=== PATIENT | female | born 1940 | race Caucasian/White ===

== ENCOUNTER → 2017-03-31 | Outpatient (CLI) | payer MEDICARE ==
--- NOTE | 2017-03-31 16:26 | RAD ---
EXAM: Chest 2 views. HISTORY: Lung nodule. COMPARISON: 02/06/2015, 01/28/2015. FINDINGS: Frontal and lateral views of the chest are obtained. There are changes of right pneumonectomy. The right hemithorax is opacified. The hepatic flexure of the colon projects in the right chest secondary to elevation of the right hemidiaphragm. This is stable. No clearly suspicious nodule is appreciated on the left. A small density in the left base likely corresponds with scarring on prior CT. Hyperinflation suggests chronic obstructive pulmonary disease. There is no pneumothorax. The heart is not enlarged. IMPRESSION: 1. Status post right pneumonectomy. 2. No clearly suspicious nodule on the left. Correlate for the site of concern.
== END | disposition home or self-care (01) ==
LOC: RAD 15:07
PROVIDERS: ATTEND Internal Medicine Pulmonary Disease
DX: R91.1 Solitary pulmonary nodule (principal); Z90.2 Acquired absence of lung [part of]
CPT/HCPCS: 71020

== ENCOUNTER → 2018-03-15 | Outpatient (CLI) | payer MEDICARE ==
[~2018-03-15] MED LIST: ONDA4TAB7 PO
--- NOTE | 2018-03-15 18:07 | RAD ---
Chest, 2 views, 03/15/2018: HISTORY: Cough, shortness of breath There has been a previous right pneumonectomy. There is associated elevation right hemidiaphragm. Bowel loops extend up beneath the right hemidiaphragm. There is mild linear scarring or atelectasis in the left base. The left lung is otherwise clear. No left-sided pleural fluid is evident. The heart size is unchanged. The pulmonary vascularity is normal. Moderate scattered degenerative changes are present in the spine. IMPRESSION: 1. Status post right pneumonectomy. 2. Mild left basilar linear scarring or atelectasis. Electronically signed by: Garry Garcia MD (03/15/2018 6:04 PM) [facility]
== END | disposition home or self-care (01) ==
LOC: RAD 12:26
PROVIDERS: ATTEND Internal Medicine Pulmonary Disease
DX: R05 Cough (principal); J98.6 Disorders of diaphragm; Z98.890 Other specified postprocedural states
CPT/HCPCS: 71046

== ENCOUNTER → 2018-03-22 | Outpatient (CLI) | payer MEDICARE ==
--- NOTE | 2018-03-22 16:34 | RAD ---
CT sinus without contrast History: Cough, sinus congestion for 8 weeks. History of lung cancer and breast cancer. Technique: CT of the sinuses was performed without intravenous contrast. Axial, sagittal, and coronal reconstructions were obtained. Exposure: One or more of the following individualized dose reduction techniques were utilized for this examination: 1. Automated exposure control 2. Adjustment of the mA and/or kV according to patient size 3. Use of iterative reconstruction technique Findings: Both osteomeatal units are patent. Minimal right inferior maxillary sinus mucosal thickening is seen. The other paranasal sinuses are clear with no significant mucosal thickening. No polyps or masses are seen. No significant mucoperiosteal reaction is identified. IMPRESSION: 1. Minimal right maxillary sinus disease Electronically signed by: Yaron Bush MD (03/22/2018 4:31 PM) [place] [id number]
--- NOTE | 2018-03-22 17:45 | RAD ---
CT CHEST WO CONTRAST Indication: Cough, sinus congestion for 8 weeks, history of lung cancer breast cancer Technique: Noncontrast CT imaging was performed of the chest, multiplanar reconstruction images submitted. One or more of the following individualized dose reduction techniques were utilized for this examination: 1. Automated exposure control 2. Adjustment of the mA and/or kV according to patient size 3. Use of iterative reconstruction technique. Comparison: February 06, 2015 Findings: There again has been right pneumonectomy. Fluid again fills residual small right hemithorax as seen previously, internal density measurements of 24 Hounsfield units. There is no left pleural effusion or pneumothorax. There are some new small foci of slightly nodular density of the left upper lobe, largest individual nodule about 7 mm, best seen on axial images 38-43, adjacent to likely atelectasis or fibrotic change. There are some foci of faint groundglass density of the left lower lobe although previously some foci of atelectasis present. There is coronary calcification. Thoracic aortic caliber is similar. No new significantly enlarged nodes are identified of the chest. There is again heterogeneity in the lumen of the gallbladder likely due to cholelithiasis. There is multilevel thoracolumbar spondylosis and degenerative disc disease. There is lumbar levoscoliosis. IMPRESSION: 1. There again has been right pneumonectomy, again fluid filling the residual small right hemithorax. There are some new small foci of nodular density of the left upper lobe with the largest individual nodule about 0.7 cm 3-[address] follow-up is recommended as per revised Fleischner guidelines. 2. There is again cholelithiasis. Electronically signed by: Sunday Bashir MD (03/22/2018 5:42 PM) [email or web address]
== END | disposition home or self-care (01) ==
LOC: CT 12:33
PROVIDERS: ATTEND Internal Medicine Pulmonary Disease
DX: M51.35 Other intervertebral disc degeneration, thoracolumbar region (principal); M47.895 Other spondylosis, thoracolumbar region; K80.20 Calculus of gallbladder without cholecystitis without obstruction; R91.1 Solitary pulmonary nodule; J01.00 Acute maxillary sinusitis, unspecified; Z85.118 Personal history of other malignant neoplasm of bronchus and lung
CPT/HCPCS: 70486; 71250

== ENCOUNTER 2018-04-02 14:02 | Emergency (ER) | payer MEDICARE ==
[~2018-04-02] VITALS: Ht 170.2 cm; Wt 72.6 kg
[2018-04-02] MEDS ORDERED: IV NORMAL SALINE 1000ML BAG 1,000 ML IV ONE ×2 (14:45→15:45)
[2018-04-02] MEDS ORDERED: ONDANSETRON PF 4 MG/2 ML VIAL. IV ONE ×2 (14:45→17:00)
[2018-04-02 15:01] LABS: BILIRUBIN,URINE NEGATIVE (NEG); CLARITY,URINE CLEAR; COLOR,URINE YELLOW; NITRITE,URINE NEGATIVE (NEG); PROTEIN,URINE NEGATIVE (NEG-TRACE); UROBILINOGEN,URINE 0.2 mg/dL (0.2 mg/dL)
[2018-04-02 15:14] LABS: BACTERIA,URINE 0 /HPF (0-FEW); RBC,URINE OCC /HPF (0-2); SQUAMOUS EPITHELIAL CELL,UR OCC /LPF; WBC,URINE OCC /HPF (0-4)
[2018-04-02 15:14] LABS: BASO % 1 % (0-3); EOS % 1 % (0-3); HEMATOCRIT 38.7 % (36.0-47.0); HEMOGLOBIN 13.6 g/dL (12.0-15.5); LYMPH # 0.5 x10^3/uL (1.0-4.8); LYMPH % 9 % (24-48); MEAN CORPUSCULAR HEMOGLOBIN 32 pg (25-35); MEAN CORPUSCULAR HGB CONC 35 g/dL (31-37); MEAN CORPUSCULAR VOLUME 91 fL (79-100); MONO # 0.5 x10^3/uL (0.0-1.1); MONO % 9 % (0-9); NEUT # 4.3 x10^3uL (1.8-7.7); NEUT % 81 % (31-73); PLATELET COUNT 285 x10^3/uL (140-400); RED BLOOD COUNT 4.25 x10^6/uL (3.50-5.40); RED CELL DISTRIBUTION WIDTH 12.3 % (11.5-14.5); WHITE BLOOD COUNT 5.4 x10^3/uL (4.0-11.0)
[2018-04-02 15:25] LABS: CALCIUM 9.6 mg/dL (8.5-10.1); GFR 53.6; POTASSIUM 4.4 mmol/L (3.5-5.1)
[2018-04-02 15:31] LABS: ALBUMIN 3.6 g/dL (3.4-5.0); ALBUMIN/GLOBULIN RATIO 0.9 (1.0-1.7); TOTAL BILIRUBIN 0.4 mg/dL (0.2-1.0); TOTAL PROTEIN 7.4 g/dL (6.4-8.2)
--- NOTE | 2018-04-02 15:31 | PHYS DOC ---
Past Medical History Past Medical History: Cancer, COPD Additional Past Medical Histor: lung and breast cancer Past Surgical History: Other Additional Past Surgical Histo: R lung removed,bilat mastectomy Alcohol Use: None Drug Use: None Adult General Chief Complaint Chief Complaint: NAUSEA/VOMITING/DIARRHA HPI HPI Patient is a 77 year old female who presents to the ER for evaluation of nausea /vomiting/diarrhea since yesterday morning. Patient denies any abdominal pain. No fever, no travel history. S/p R lung resection 2/2 lung cancer. has had chronic cough for the past 6 weeks. Has completed a course of Levaquin prescribed by [employer]asing [employer] and is currently on bactrim also prescribed by [employer]asing [employer]. Review of Systems Review of Systems Constitutional: Denies fever or chills [] Eyes: Denies change in visual acuity, redness, or eye pain [] HENT: Denies nasal congestion or sore throat [] Respiratory: Cough present Cardiovascular: No chest Pain, no LE edema, No Orthopnea GI: Denies abdominal pain, Denies GI bleed symptoms, Nausea present, diarrhea present, vomiting present : Denies dysuria or hematuria [] Musculoskeletal: Denies back pain or joint pain [] Integument: Denies rash or skin lesions [] Neurologic: Denies headache, focal weakness or sensory changes [] Endocrine: Denies polyuria or polydipsia [] All other systems were reviewed and found to be within normal limits, except as documented in this note. Current Medications Current Medications Current Medications Medications (Trade) Dose Ordered Sig/Nitza Start Time Stop Time Status Last Admin Dose Admin Ondansetron HCl (Zofran) 8 mg 1X ONCE 04/02/18 14:45 04/02/18 14:46 DC 04/02/18 15:01 8 MG Sodium Chloride 1,000 ml @ 1,000 mls/hr 1X ONCE 04/02/18 15:45 04/02/18 16:44 Allergies Allergies Allergies Coded Allergies Type Severity Reaction Last Updated Verified Penicillins Allergy Intermediate "lip swelling" 04/02/18 Yes Physical Exam Physical Exam Constitutional: Well developed, well nourished, active vomiting HENT: Normocephalic, atraumatic, Eyes: PERRLA, EOMI, Neck: no stridor. [] Cardiovascular:Tachycardic, no murmur [] Lungs & Thorax: Left sided breath sounds clear. No R sided breath sounds Abdomen: Bowel sounds normal, soft, no tenderness, no masses, no pulsatile masses. [] Skin: Warm, dry, no erythema, no rash. [] Back: No tenderness, no CVA tenderness. [] Extremities: no edema. [] Neurologic: Alert and oriented X 3, no focal deficits noted. [] Current Patient Data Vital Signs Vital Signs Date Time Temp Pulse Resp B/P (MAP) Pulse Ox O2 Delivery O2 Flow Rate FiO2 04/02/18 14:10 98.2 108 28 146/89 (108) 96 Room Air 98.2 Lab Values Laboratory Tests Test 04/02/18 14:20 04/02/18 15:00 Urine Collection Type Unknown Urine Color Yellow Urine Clarity Clear Urine pH 7.0 Urine Specific [place] 1.020 Urine Protein Negative mg/dL (NEG-TRACE) Urine Glucose (UA) Negative mg/dL (NEG) Urine Ketones (Stick) Trace mg/dL (NEG) Urine Blood Negative (NEG) Urine Nitrite Negative (NEG) Urine Bilirubin Negative (NEG) Urine Urobilinogen Dipstick 0.2 mg/dL (0.2 mg/dL) Urine Leukocyte Esterase Negative (NEG) Urine RBC Occ /HPF (0-2) Urine WBC Occ /HPF (0-4) Urine Squamous Epithelial Cells Occ /LPF Urine Bacteria 0 /HPF (0-FEW) Urine Mucus Mod /LPF White Blood Count 5.4 x10^3/uL (4.0-11.0) Red Blood Count 4.25 x10^6/uL (3.50-5.40) Hemoglobin 13.6 g/dL (12.0-15.5) Hematocrit 38.7 % (36.0-47.0) Mean Corpuscular Volume 91 fL (79-100) Mean Corpuscular Hemoglobin 32 pg (25-35) Mean Corpuscular Hemoglobin Concent 35 g/dL (31-37) Red Cell Distribution Width 12.3 % (11.5-14.5) Platelet Count 285 x10^3/uL (140-400) Neutrophils (%) (Auto) 81 % (31-73) H Lymphocytes (%) (Auto) 9 % (24-48) L Monocytes (%) (Auto) 9 % (0-9) Eosinophils (%) (Auto) 1 % (0-3) Basophils (%) (Auto) 1 % (0-3) Neutrophils # (Auto) 4.3 x10^3uL (1.8-7.7) Lymphocytes # (Auto) 0.5 x10^3/uL (1.0-4.8) L Monocytes # (Auto) 0.5 x10^3/uL (0.0-1.1) Eosinophils # (Auto) 0.0 x10^3/uL (0.0-0.7) Basophils # (Auto) 0.0 x10^3/uL (0.0-0.2) Sodium Level 128 mmol/L (136-145) L Potassium Level 4.4 mmol/L (3.5-5.1) Chloride Level 92 mmol/L (98-107) L Carbon Dioxide Level 28 mmol/L (21-32) Anion Gap 8 (6-14) Blood Urea Nitrogen 10 mg/dL (7-20) Creatinine 1.0 mg/dL (0.6-1.0) Estimated GFR (Cockcroft-Gault) 53.6 BUN/Creatinine Ratio 10 (6-20) Glucose Level 106 mg/dL (70-99) H Calcium Level 9.6 mg/dL (8.5-10.1) Total Bilirubin 0.4 mg/dL (0.2-1.0) Aspartate Amino Transferase (AST) 20 U/L (15-37) Alanine Aminotransferase (ALT) 18 U/L (14-59) Alkaline Phosphatase 54 U/L (46-116) Total Protein 7.4 g/dL (6.4-8.2) Albumin 3.6 g/dL (3.4-5.0) Albumin/Globulin Ratio 0.9 (1.0-1.7) L Lipase 97 U/L (73-393) Laboratory Tests 04/02/18 15:00 Laboratory Tests 04/02/18 15:00 EKG EKG [] Radiology/Procedures Radiology/Procedures [] Course & Med Decision Making Course & Med Decision Making Pertinent Labs and Imaging studies reviewed. (See chart for details) []1601: Feeling better. Heart rate improved but still and 90s. We'll give 1 more liter fluid. Continues to have a benign abdomen. Has multiple questions regarding her chronic cough but this is being managed by her offline editor with whom she has an appointment with tomorrow. Patient has a sodium of 128 but she is asymptomatic from this and this is unrelated to her ER presentation. This likely represents a chronic hyponatremia and per current evidence-based medicine is not indicated for any acute treatment. She has normal renal function. Will discharge patient with a small course of Zofran. ER return precautions given. Patient verbalized understanding. All questions answered. Dragon Disclaimer Dragon Disclaimer This electronic medical record was generated, in whole or in part, using a voice recognition dictation system. Departure Departure Impression: Primary Impression: Vomiting Additional Impression: Dehydration Disposition: HOME, SELF-CARE Condition: IMPROVED Referrals: PEYTON CABA MD (PCP) Patient Instructions: Nausea and Vomiting, Viral Gastroenteritis Additional Instructions: Thank you for coming to [facility]. Please repeat the attached handouts. Please follow-up with your primary care physician. Return to the ER if your symptoms worsen or you have any other concerns. Please take the prescribed nausea medication only as needed. Please encourage fluids. Avoid dairy-containing products until your diarrhea is resolved. Scripts Ondansetron Hcl (ZOFRAN) 4 Mg Tablet 4 MG PO PRN TID PRN for NAUSEA MDD 3, #15 nausea/vomiting Prov: JOSE CHRISTIAN DO 04/02/18 Problem Qualifiers JOSE CHRISTIAN DO Apr 02, 2018 15:31
[2018-04-02] MEDS ORDERED: ONDA4TAB7 PO (16:06)
[2018-04-02 16:58] VITALS: BP 150/75
--- NOTE | 2018-04-03 06:27 | EKG ---
[facility] [address] [place] [address] Test Date: 2018-04-02 Test Time: 14:44:53 Pat Name: ROSELIA GOLDBERG Department: Room: Gender: F Physics Technician: : 1940 Requested By: JOSE CHRISTIAN Order Number: [id number] Reading MD: Pascual Mas MD Measurements Intervals [place] Rate: 100 P: -128 PA: 122 QRS: -69 QRSD: 82 T: 51 QT: 366 QTc: 475 Interpretive Statements SINUS RHYTHM NON-SPECIFIC ST/T CHANGES PROLONGED QT Electronically Signed On 04-03-2018 10:59:07 GYN by Pascual Mas MD
== END 2018-04-02 17:26 | disposition home or self-care (01) ==
LOC: ER 14:02
DX: E86.0 Dehydration (principal); R05 Cough; J44.9 Chronic obstructive pulmonary disease, unspecified; Z85.3 Personal history of malignant neoplasm of breast; Z85.118 Personal history of other malignant neoplasm of bronchus and lung; Z88.0 Allergy status to penicillin
CPT/HCPCS: 36415; 80053; 81001; 83690; 85025; 93005; 96361; 96374; 96376; 99285; J2405; J7030

== ENCOUNTER → 2018-06-07 | Day surgery (SDC) | payer MEDICARE ==
[~2018-06-07] MED LIST changes: +ALBUTEROL SULFATE 2.5 MG/3 ML NEBU. NEB PRN; +ASPI-630 PO; +CALC200T3 PO; +EPINEPHrine 1 MG/ML VIAL INJ PRN; +EPINEPHrine 1 MG/ML VIAL ONE; +FEMARA2.5 MG PO; +FLUT12AE IH; +IV RINGERS,LACTATED 1000ML 1,000 ML IV SCH; +LIDOCAINE 1% Multi-Dose 20 ML VIAL. INJ PRN; +LIDOCAINE 1% Multi-Dose 20 ML VIAL. ONE; +LIDOCAINE 2% PF 5 ML VIAL. ONE; +LIDOCAINE 2% VISCOUS 100 ML BOTTLE. MM PRN; +LIDOCAINE 2% VISCOUS 100 ML BOTTLE. ONE; +LIDOCAINE 4% TOPICAL 50 ML SOLUTION. MM PRN; +LIDOCAINE 4% TOPICAL 50 ML SOLUTION. ONE; +MONT10TA49 PO; +MULT1TAB52 PO; +OMEP10CA4 PO; +PROPOFOL 20 ML IV ONE; +VENTOLIN HFA18 GM INH
[2018-06-07 14:02] VITALS: BP 123/73
--- NOTE | 2018-06-07 14:21 | PDOC ---
PULMONARY PROGRESS NOTES Vitals Vital Signs Date Time Temp Pulse Resp B/P (MAP) Pulse Ox O2 Delivery O2 Flow Rate FiO2 06/07/18 13:54 97.0 56 16 110/66 98 Room Air 97.0 06/07/18 13:48 5 Medications Active Scripts Medications Dose Route/Sig Max Daily Dose Days Date Category Omeprazole 10 Mg Capsule.dr 10 Mg PO DAILY 06/07/18 Reported Aspirin 81 Mg Tab.chew 81 Mg PO DAILY05 06/07/18 Reported Multivitamins (Multivitamin) 1 Each Tablet 1 Tab PO DAILY 06/07/18 Reported Tums (Calcium Carbonate) 200 Mg Tab.chew 200 Mg PO Q4-6HRS PRN 06/07/18 Reported Femara (Letrozole) 2.5 Mg Tablet 1 Tab PO DAILY 06/07/18 Reported Singulair Tablet (Montelukast Sodium) 10 Mg Tablet 1 Tab PO DAILY 06/07/18 Reported Flovent 110MCG Hfa (Fluticasone Propionate) 12 Gm Aer.w.adap 2 Puff IH BID 06/07/18 Reported Ventolin Hfa Inhaler (Albuterol Sulfate) 18 Gm Hfa.aer.ad 2 Puff INH BID 06/07/18 Reported Impression . DICTATED PHUC SALAZAR MD Jun 07, 2018 14:21
--- NOTE | 2018-06-07 14:26 | OP ---
DATE OF SURGERY: 06/07/2018 ATTENDING PHYSICIAN: Phuc Salazar MD PROCEDURE: Bronchoscopy, bronchoalveolar lavage. INDICATIONS: The patient with prior history of right pneumonectomy for carcinoid tumor. For persistent cough, undergoing a diagnostic bronchoscopy. Risks, benefits, and alternatives reviewed with the patient, she consented. SEDATION: Please see anesthesia's notes. DESCRIPTION OF PROCEDURE: Timeout was performed prior to sedation. Vital signs and O2 saturations were maintained within normal limits throughout the procedure. The bronchoscope was passed through the right naris. The vocal cords were identified moving bilaterally without any dysfunction. The piriform sinuses were clear of any masses. Bronchoscope was then passed through the vocal cords into the proximal trachea, which was normal. The distal trachea was likewise normal. On the right, there was a stump-like picture. A picture was obtained. There was no evidence of recurrent disease. Left side segments and subsegments were all visualized. There were no endobronchial lesions. There were some thick white secretions. Lavage was performed in the right lower lobe. IMPRESSION: 1. Normal vocal cords. 2. No endobronchial lesion. 3. Normal stump, status post right pneumonectomy. 4. No endobronchial lesion on the left. PLAN: We will await the BAL results, the patient to follow up in the office. PHUC SALAZAR MD DR: ALLAN/nts JOB#: [id number] / [id number]
--- NOTE | 2018-06-08 16:10 | PATHOLOGY ---
Note [facility] Accession Number: [id number] TESTS RESULT FLAG UNITS REF RANGE LAB Clinician Provided Cytology Information No. of containers..01 Other (Miscellaneous) Source: LT LUNG BAL DIAGNOSIS: LT LUNG BAL NEGATIVE FOR MALIGNANT CELLS. NORMAL BRONCHIAL CELLS AND MACROPHAGES ARE PRESENT. PULMONARY MACROPHAGES (DUST CELLS) ARE PRESENT. RED BLOOD CELLS ARE PRESENT. Signed out by: Phillip Nicole MD, Pathologist NPI- [id number] Performed by: Akira Bedoya, School Age Program Teacher ([facility]) Gross description: 01 7ML, RED, CLOUDY /LCS FLAG LEGEND: L-Low Normal,H-High Normal,LL-Alert Low,HH-Alert High <-Panic Low,>-Panic High,A-Abnormal,AA-Critical Abnormal Performed at: [address] [address] Isaak Escalante MD, [facility] [address] [place] [address] Kailash Lott MD, Specimen Comment: A courtesy copy of this report has been sent to Specimen Comment: [phone]. Specimen Comment: Report sent to Specimen Comment: A duplicate report has been generated due to demographic updates. Performed at: [address], [place] [id number] MD Isaak Escalante MD Phone: [phone]
== END | disposition home or self-care (01) ==
LOC: SURG 12:09
PROVIDERS: ATTEND Internal Medicine Pulmonary Disease
DX: R91.8 Other nonspecific abnormal finding of lung field (principal); Z88.0 Allergy status to penicillin; Z88.1 Allergy status to other antibiotic agents; Z88.8 Allergy status to other drugs, medicaments and biological substances
CPT/HCPCS: 31624; 87070; 87205; 94640; J2001; J2704; J7613; 31622; 87186; 88112; J0171

== ENCOUNTER 2018-06-15 10:46 | Inpatient (IN) | payer MEDICARE ==
[~2018-06-15] VITALS: Ht 170.2 cm; Wt 69.2 kg
[~2018-06-15 10:46] MED LIST changes: -ALBUTEROL SULFATE 2.5 MG/3 ML NEBU. NEB PRN; -EPINEPHrine 1 MG/ML VIAL INJ PRN; -EPINEPHrine 1 MG/ML VIAL ONE; -IV RINGERS,LACTATED 1000ML 1,000 ML IV SCH; -LIDOCAINE 1% Multi-Dose 20 ML VIAL. INJ PRN; -LIDOCAINE 1% Multi-Dose 20 ML VIAL. ONE; -LIDOCAINE 2% PF 5 ML VIAL. ONE; -LIDOCAINE 2% VISCOUS 100 ML BOTTLE. MM PRN; -LIDOCAINE 2% VISCOUS 100 ML BOTTLE. ONE; -LIDOCAINE 4% TOPICAL 50 ML SOLUTION. MM PRN; -LIDOCAINE 4% TOPICAL 50 ML SOLUTION. ONE; -MONT10TA49 PO; +MONT10TA6 PO; +OMEP10CA3 PO; -OMEP10CA4 PO; -PROPOFOL 20 ML IV ONE
[2018-06-15] MEDS ORDERED: CALCIUM CARBONATE 500 MG TAB.CHEW PO PRN (14:15)
[2018-06-15] MEDS ORDERED: MAGNESIUM HYDROXIDE 2,400 MG/30 ML ORAL.SUSP. PO PRN (14:15)
[2018-06-15] MEDS ORDERED: ACETAMINOPHEN 325 MG TABLET. PO PRN (14:15)
[2018-06-15] MEDS ORDERED: ONDANSETRON PF 4 MG/2 ML VIAL. IV PRN (14:15)
[2018-06-15] MEDS ORDERED: HYDROcodone/APAP 5/325MG 1 TAB TABLET PO PRN (14:15)
--- NOTE | 2018-06-15 14:21 | PDOC1 ---
History and Physical Date of Admission Date of Admission DATE: 06/15/18 TIME: 14:17 Identification/Chief Complaint Chief Complaint Cough Source Source: Caregiver, Chart review, Patient History of Present Illness History of Present Illness Ms Bernal is a 78yo F w/ PMHx chronic asthma, s/p right pneumonectomy 2002 who is being directly admitted after a positive pseudomonas culture via bronchoscopy outpatient on 06/07/18. She has been having a persistent cough with yellow sputum for at least 3 months. She had an abnormal CT chest in February of last year where she had some faint nodular infiltrate that appeared dense in the left upper lobe and and has undergone multiple rounds of antibiotics with no significant improvement and after an episode of fever, nausea and vomiting on 05/09 she was scheduled for and underwent bronchoscopy performed by Dr. Saavedra 06/07/18 and cultures grew multidrug resistant Pseudomonas aeruginosa with multiple drug resistances shown. She is accompanied by her and currently notes she does still have brownish yellow sputum she coughs up daily. No CP, mild SOB. Some nausea, no further vomiting. Past Medical History Cardiovascular: No pertinent hx Pulmonary: Asthma, Bronchitis, Pneumonia GI: No pertinent hx Heme/Onc: No pertinent hx Hepatobiliary: No pertinent hx Psych: No pertinent hx Rheumatologic: No pertinent hx Infectious disease: No pertinent hx ENT: Allergic Rhinitis Renal/: No pertinent hx Endocrine: No pertinent hx Dermatology: No pertinent hx Past Surgical History Past Surgical History: Mastectomy (Bilateral 2013), Tubal Ligation, Other ( Right pneumonectomy 2002) Family History Family History: Asthma Social History Smoke: Quit ALCOHOL: rare Drugs: None Current Medications Current Medications Active Scripts Active Reported Omeprazole 10 Mg Capsule.dr 10 Mg PO DAILY Aspirin 81 Mg Tab.chew 81 Mg PO DAILY05 Multivitamins (Multivitamin) 1 Each Tablet 1 Tab PO DAILY Tums (Calcium Carbonate) 200 Mg Tab.chew 200 Mg PO Q4-6HRS PRN Femara (Letrozole) 2.5 Mg Tablet 1 Tab PO DAILY Singulair Tablet (Montelukast Sodium) 10 Mg Tablet 1 Tab PO DAILY Flovent 110MCG Hfa (Fluticasone Propionate) 12 Gm Aer.w.adap 2 Puff IH BID Ventolin Hfa Inhaler (Albuterol Sulfate) 18 Gm Hfa.aer.ad 2 Puff INH BID Allergies Allergies: Coded Allergies: Penicillins (Verified Allergy, Severe, "lip swelling", 06/07/18) levofloxacin (Verified Allergy, Intermediate, 06/07/18) muscle pain I S O L A T I O N *CONTACT* (Verified Allergy, Unknown, 06/11/18) (R) PSA ROS General: YES: Fatigue, Malaise PSYCHOLOGICAL ROS: No: Anxiety, Behavioral Disorder, Concentration difficultie , Decreased libido, Depression, Disorientation, Hallucinations, Hostility, Irritablity, Memory difficulties, Mood Swings, Obsessive thoughts, Physical abuse, Sexual abuse, Sleep disturbances, Suicidal ideation, Other Eyes: No Blurry vision, No Decreased vision, No Double vision, No Dry eyes, No Excessive tearing, No Eye Pain, No Itchy Eyes, No Loss of vision, No Photophobia , No Scotomata, No Uses contacts, No Uses glasses, No Other HEENT: YES: Nasal congestion, Nasal discharge; No: Heacaches, Visual Changes, Hearing change, Oral lesions, Sinus pain, Sore Throat, Epistaxis, Sneezing, Snoring, Tinnitus, Vertigo, Vocal changes, Other ALLERGY AND IMMUNOLOGY: No: Hives, Insect Bite Sensitivity, Itchy/Watery Eyes, Nasal Congestion, Post Nasal Drip, Seasonal Allergies, Other Hematological and Lymphatic: No: Bleeding Problems, Blood Clots, Blood Transfusions, Brusing, Night Sweats, Pallor, Swollen Lymph Nodes, Other ENDOCRINE: No: Breast Changes, Galactorrhea, Hair Pattern Changes, Hot Flashes , Malaise/lethargy, Mood Swings, Palpitations, Polydipsia/polyuria, Skin Changes , Temperature Intolerance, Unexpected Weight Changes, Other Breast: No New/Changing Breast Lumps, No Nipple changes, No Nipple discharge, No Other Respiratory: YES: Cough, Shortness of breath, Sputum Changes, Wheezing; No: Hemoptysis, Orthopnea, Pleuritic Pain, SOB with excertion, Stridor, Tachypnea, Other Cardiovascular: No Chest Pain, No Palpitations, No Orthopnea, No Paroxysmal Noc. Dyspnea, No Edema, No Lt Headedness, No Other Gastrointestinal: Yes Nausea; No Vomiting, No Abdominal Pain, No Diarrhea, No Constipation, No Melena, No Hematochezia, No Other Genitourinary: No Dysuria, No Frequency, No Incontinence, No Hematuria, No Retention, No Discharge, No Urgency, No Pain, No Flank Pain, No Other, No , No , No , No , No , No , No Musculoskeletal: No Gait Disturbance, No Joint Pain, No Joint Stiffness, No Joint Swelling, No Muscle Pain, No Muscular Weakness, No Pain In:, No Swelling In:, No Other Neurological: No Behavorial Changes, No Bowel/Bladder ControlChng, No Confusion , No Dizziness, No Gait Disturbance, No Headaches, No Impaired Coord/balance, No Memory Loss, No Numbness/Tingling, No Seizures, No Speech Problems, No Tremors, No Visual Changes, No Weakness, No Other Skin: No Dry Skin, No Eczema, No Hair Changes, No Lumps, No Mole Changes, No Mottling, No Nail Changes, No Pruritus, No Rash, No Skin Lesion Changes, No Other, No Acne Physical Exam General: Alert, Oriented X3, Cooperative, No acute distress HEENT: Atraumatic, PERRLA, EOMI, Mucous membr. moist/pink Lungs: Other (No audible breath sounds on right, prolonged expiratory phase on left) Heart: S1S2, RRR, no gallops, no murmurs Abdomen: Normal bowel sounds, Soft, No tenderness, No hepatosplenomegaly, No masses Rectal Exam: not examined Extremities: No clubbing, No cyanosis, No edema, Normal pulses, No tenderness/ swelling Skin: No rashes, No breakdown, No significant lesion Neuro: Normal gait, Normal speech, Strength at 5/5 X4 ext, Normal tone, Sensation intact, Cranial nerves 3-12 NL, Reflexes 2+ Psych/Mental Status: Mental status NL, Mood NL VTE Prophylaxis Ordered VTE Prophylaxis Devices: No VTE Pharmacological Prophylaxi: Yes Assessment/Plan Assessment/Plan A/P: Pseudomonas pneumonia - has levaquin and PCN allergies, resistant to these anyway. Will start on merrem. Consult ID and pulmonology. I think PICC nurse or IR for PICC is appropriate as well Amikacin S<=2 Cefepime S =2 Ceftazidime S =4 Ciprofloxacin R>=4 Gentamicin S<=1 Imipenem S =2 Levofloxacin I =4 Meropenem S =1 Piperacillin R>=128 Ticarcillin R>=128 Tobramycin I =8 S/p right pneumonectomy - stable Chronic asthmatic bronchitis - cont nebs, pulmicort Chronic sinusitis - steroid nasal spray Nausea - IV zofran FEN - general diet PPX - heparin FULL CODE Inpatient for IV treatment of MDRO pseudomonas pneumonia in high risk patient, will be in at least 2 midnights. LETICIA QUEZADA MD Jun 15, 2018 14:21
[2018-06-15 15:00] VITALS: BP 151/60
[2018-06-15] MEDS: HEPARIN for SUB-Q USE 5,000 UNIT/ML VIAL. SQ SCH ×2 (15:00→22:16)
--- NOTE | 2018-06-15 15:34 | CONS ---
DATE OF CONSULTATION: 06/15/2018 ATTENDING PHYSICIAN: Dr. Ward. REASON FOR CONSULTATION: Multidrug resistant Pseudomonas pneumonia. HISTORY OF PRESENT ILLNESS: The patient is a 78-year-old who sees my partner, Dr. Saavedra in the office. She has history of right pneumonectomy in 2002. The patient has been having a persistent cough with on and off yellow sputum production since last 2-3 months. She had an abnormal CT chest in February of last year where she had some faint nodular infiltrate in the left upper lobe. The patient underwent bronchoscopy performed by Dr. Saavedra in May and cultures grew multidrug resistant Pseudomonas. As a result, we called the patient for IV antibiotics. Pseudomonas was not sensitive to any oral antibiotics. The patient states she does not have a fever, but she has on and off some light yellow sputum production. No chest pains. No shortness of breath. No weight loss. No headache, no nausea or vomiting, no diarrhea, no dysuria, no focal weakness. PAST MEDICAL HISTORY: History of right pneumonectomy for lung cancer in 2002. Possible mild COPD. History of GERD. PAST SURGICAL HISTORY: Right pneumonectomy. ALLERGIES: PENICILLIN AND LEVAQUIN. REVIEW OF SYSTEMS: Twelve-point system obtained. Pertinent positives discussed in my history of present illness, otherwise noncontributory. All systems that were negative were reviewed as well. SOCIAL HISTORY: Has minimal tobacco history in the past. Quit many years ago. PHYSICAL EXAMINATION: VITAL SIGNS: Have not been recorded yet. NECK: Supple. LUNGS: Clear on the left and diminished on the right. CARDIOVASCULAR: Regular rate. ABDOMEN: Soft, nontender. EXTREMITIES: With no pitting edema. Labs have been ordered. IMPRESSION: 1. Persistent cough with abnormal CT chest with a tiny nodular infiltrate in the left upper lobe. Status post bronchoscopy growing multidrug resistant Pseudomonas in bronchoalveolar lavage. 2. History of a right pneumonectomy for lung cancer in 2002. 3. Possible mild chronic obstructive pulmonary disease. RECOMMENDATIONS: 1. Discussed with the patient and her and discussed with Dr. Ward. 2. We will initiate broad spectrum antibiotic, meropenem. 3. Consult Infectious Disease regarding the duration of antibiotics. 4. If she needs a longer duration, then we will consider a PICC line placement and finished the course of antibiotic as an outpatient by home health. 5. Continue home medications. 6. We will also do a CT chest without contrast to assess for any progression in the previously seen left upper lobe infiltrate. Discussed with Dr. Ward. YOVANA COE MD DR: CARLY/brigid JOB#: [id number] / [id number]
[2018-06-15] MEDS: MEROPENEM 500 MG in IV NORMAL SALINE 50ML 50 ML IV SCH ×2 (17:02→22:07)
--- NOTE | 2018-06-15 17:14 | RAD ---
CT of the chest without contrast, 06/15/2018: HISTORY: Left upper lobe pneumonia, previous right pneumonectomy Noncontrast scans were obtained as requested. There is volume loss on the right with fluid in the right chest cavity compatible with a history of a previous right pneumonectomy. Several minimal pleural calcifications are noted. There is associated marked elevation of the right hemidiaphragm. Nodular lingular opacities present on the 03/22/2018 study have largely resolved. There is minimal residual streaky increased density in the inferior lingula, likely representing scarring. A tiny 3 mm subpleural nodule in the lateral aspect of the left upper lobe seen on image 15 of series #2 is unchanged. No pulmonary consolidation or new abnormality is seen on the left. There is no evidence of left-sided pleural fluid. There is calcific plaquing of the thoracic aorta without evidence of aneurysm. Minimal coronary artery calcification is present. Surgical clips are present in the mediastinum. No mediastinal adenopathy is seen. A trace amount of pericardial fluid is noted. Gallstones are present in the gallbladder. There is no pericholecystic edema. Moderate multilevel degenerative changes are present in the spine. IMPRESSION: 1. Status post right pneumonectomy. 2. Mild lingular nodularity seen on 03/22/2018 has largely resolved and was probably inflammatory in nature. 3. Mild scattered parenchymal scarring on the left 4. Cholelithiasis. PQRS Compliance Statement: One or more of the following individualized dose reduction techniques were utilized for this examination: 1. Automated exposure control 2. Adjustment of the mA and/or kV according to patient size 3. Use of iterative reconstruction technique Electronically signed by: Garry Garcia MD (06/15/2018 5:09 PM) [facility]
[2018-06-15 19:45] VITALS: BP 107/51
[2018-06-15 19:45] LABS: BASO % 1 % (0-3); EOS # 0.1 x10^3/uL (0.0-0.7); EOS % 2 % (0-3); HEMATOCRIT 36.7 % (36.0-47.0); HEMOGLOBIN 12.4 g/dL (12.0-15.5); LYMPH # 0.7 x10^3/uL (1.0-4.8); LYMPH % 12 % (24-48); MEAN CORPUSCULAR HEMOGLOBIN 31 pg (25-35); MEAN CORPUSCULAR HGB CONC 34 g/dL (31-37); MEAN CORPUSCULAR VOLUME 91 fL (79-100); MONO # 0.5 x10^3/uL (0.0-1.1); MONO % 10 % (0-9); NEUT # 4.4 x10^3uL (1.8-7.7); NEUT % 76 % (31-73); PLATELET COUNT 263 x10^3/uL (140-400); RED BLOOD COUNT 4.03 x10^6/uL (3.50-5.40); RED CELL DISTRIBUTION WIDTH 12.6 % (11.5-14.5); WHITE BLOOD COUNT 5.7 x10^3/uL (4.0-11.0)
[2018-06-15 20:02] LABS: CREATININE 0.9 mg/dL (0.6-1.0); GFR 60.4; POTASSIUM 4.2 mmol/L (3.5-5.1)
[2018-06-15] MEDS: ALBUTEROL SULFATE 2.5 MG/3 ML NEBU. NEB SCH (20:05)
[2018-06-15] MEDS: BUDESONIDE 0.5 MG/2 ML NEBU. NEB SCH (20:05)
[2018-06-15] MEDS ORDERED: NON FORMULARY ITEM (Albuterol Sulfate (Ventolin Hfa Inhaler) 2 PUFF) INH SCH (21:00)
[2018-06-15] MEDS ORDERED: NON FORMULARY ITEM (Fluticasone Propionate (Flovent 110MCG Hfa) 2 PUFF) IH SCH (21:00)
[2018-06-15] MEDS: SENNOSIDES/DOCUSATE 8.6/50MG TABLET. PO SCH (22:08)
[2018-06-15] MEDS: MONTELUKAST SODIUM 10 MG TABLET. PO SCH (22:08)
[2018-06-15] MEDS ORDERED: LETROZOLE 2.5MG TAB PO SCH (23:00)
[2018-06-15] MEDS: PANTOPRAZOLE 40 MG TABLET.DR. PO SCH (23:06)
[2018-06-15 23:45] VITALS: BP 115/62
[2018-06-16 03:57] VITALS: BP 110/54
[2018-06-16] MEDS: ASPIRIN CHEWABLE 81 MG TABLET. PO SCH (05:00)
[2018-06-16 05:10] LABS: BASO % 1 % (0-3); EOS # 0.1 x10^3/uL (0.0-0.7); EOS % 2 % (0-3); HEMATOCRIT 33.4 % (36.0-47.0); HEMOGLOBIN 11.4 g/dL (12.0-15.5); LYMPH # 0.7 x10^3/uL (1.0-4.8); LYMPH % 15 % (24-48); MEAN CORPUSCULAR HEMOGLOBIN 31 pg (25-35); MEAN CORPUSCULAR HGB CONC 34 g/dL (31-37); MEAN CORPUSCULAR VOLUME 91 fL (79-100); MONO # 0.6 x10^3/uL (0.0-1.1); MONO % 12 % (0-9); NEUT # 3.6 x10^3uL (1.8-7.7); NEUT % 70 % (31-73); PLATELET COUNT 243 x10^3/uL (140-400); RED BLOOD COUNT 3.67 x10^6/uL (3.50-5.40); RED CELL DISTRIBUTION WIDTH 12.6 % (11.5-14.5); WHITE BLOOD COUNT 5.1 x10^3/uL (4.0-11.0)
[2018-06-16] MEDS: HEPARIN for SUB-Q USE 5,000 UNIT/ML VIAL. SQ SCH ×3 (06:00→21:08)
[2018-06-16] MEDS: MEROPENEM 500 MG in IV NORMAL SALINE 50ML 50 ML IV SCH ×3 (06:36→21:04)
[2018-06-16 07:00] VITALS: BP 113/59
[2018-06-16] MEDS: MULTIVITAMIN with MINERAL TABLET. PO SCH (08:17)
[2018-06-16] MEDS: SENNOSIDES/DOCUSATE 8.6/50MG TABLET. PO SCH ×2 (08:17→20:55)
[2018-06-16] MEDS ORDERED: LETROZOLE 2.5MG TAB PO SCH (09:00)
--- NOTE | 2018-06-16 09:10 | PDOC ---
PROGRESS NOTES Chief Complaint Chief Complaint 1. Persistent cough with abnormal CT chest with a tiny nodular infiltrate in the left upper lobe. Status post bronchoscopy growing multidrug resistant Pseudomonas in bronchoalveolar lavage. 2. History of a right pneumonectomy for lung cancer in 2002. 3. Possible mild chronic obstructive pulmonary disease. 4. GERD? History of Present Illness History of Present Illness Relays to me symptoms what sounds like GERD totally unrelated to her lung issues So far cough is getting better No fever, no white count Pseudomonas on bronchoscopy done as outpatient hence referred by pulmonary service here CT chest shows right pneumonectomy and clear left lung mcknight Plan: Await ID rounds CPM Continue PPI She wants to hold off on any GI consults for now Vitals Vitals Vital Signs Date Time Temp Pulse Resp B/P (MAP) Pulse Ox O2 Delivery O2 Flow Rate FiO2 06/16/18 07:00 99.4 83 18 113/59 (77) 91 Room Air 99.4 Physical Exam General: Alert, Oriented X3, Cooperative, No acute distress Heart: Regular rate, Normal S1, Normal S2 Lungs: Clear Abdomen: Normal bowel sounds, Soft, No tenderness, No hepatosplenomegaly, No masses Extremities: No clubbing, No cyanosis, No edema, Normal pulses, No tenderness/ swelling Skin: No rashes, No breakdown, No significant lesion Labs LABS Laboratory Tests Test 06/15/18 19:35 06/16/18 03:35 White Blood Count 5.7 x10^3/uL (4.0-11.0) 5.1 x10^3/uL (4.0-11.0) Red Blood Count 4.03 x10^6/uL (3.50-5.40) 3.67 x10^6/uL (3.50-5.40) Hemoglobin 12.4 g/dL (12.0-15.5) 11.4 g/dL (12.0-15.5) Hematocrit 36.7 % (36.0-47.0) 33.4 % (36.0-47.0) Mean Corpuscular Volume 91 fL (79-100) 91 fL (79-100) Mean Corpuscular Hemoglobin 31 pg (25-35) 31 pg (25-35) Mean Corpuscular Hemoglobin Concent 34 g/dL (31-37) 34 g/dL (31-37) Red Cell Distribution Width 12.6 % (11.5-14.5) 12.6 % (11.5-14.5) Platelet Count 263 x10^3/uL (140-400) 243 x10^3/uL (140-400) Neutrophils (%) (Auto) 76 % (31-73) 70 % (31-73) Lymphocytes (%) (Auto) 12 % (24-48) 15 % (24-48) Monocytes (%) (Auto) 10 % (0-9) 12 % (0-9) Eosinophils (%) (Auto) 2 % (0-3) 2 % (0-3) Basophils (%) (Auto) 1 % (0-3) 1 % (0-3) Neutrophils # (Auto) 4.4 x10^3uL (1.8-7.7) 3.6 x10^3uL (1.8-7.7) Lymphocytes # (Auto) 0.7 x10^3/uL (1.0-4.8) 0.7 x10^3/uL (1.0-4.8) Monocytes # (Auto) 0.5 x10^3/uL (0.0-1.1) 0.6 x10^3/uL (0.0-1.1) Eosinophils # (Auto) 0.1 x10^3/uL (0.0-0.7) 0.1 x10^3/uL (0.0-0.7) Basophils # (Auto) 0.0 x10^3/uL (0.0-0.2) 0.0 x10^3/uL (0.0-0.2) Sodium Level 133 mmol/L (136-145) Potassium Level 4.2 mmol/L (3.5-5.1) Chloride Level 97 mmol/L (98-107) Carbon Dioxide Level 30 mmol/L (21-32) Anion Gap 6 (6-14) Blood Urea Nitrogen 15 mg/dL (7-20) Creatinine 0.9 mg/dL (0.6-1.0) Estimated GFR (Cockcroft-Gault) 60.4 Glucose Level 118 mg/dL (70-99) Calcium Level 9.0 mg/dL (8.5-10.1) Review of Systems Review of Systems A 14 point ROS was completed with the following noted as positive: Other systems reviewed and negative. \CONSTITUTIONAL: No fever or chills EYES: No recent changes SKIN: No rash or itching CARDIOVASCULAR: No chest pain, syncope, palpitations, or edema RESPIRATORY: No SOB or cough GASTROINTESTINAL: No nausea, vomiting or abdominal pain NEUROLOGICAL: No headaches or weakness ENDOCRINE: No cold or heat intolerance GENITOURINARY: No urgency or frequency of urination MUSCULOSKELETAL: No back pain or joint pain LYMPHATICS: No enlarged lymph nodes PSYCHIATRIC: No anxiety or depression Comment Review of Relevant I have reviewed the following items galen (where applicable) has been applied. Labs Laboratory Tests Test 06/15/18 19:35 06/16/18 03:35 White Blood Count 5.7 x10^3/uL (4.0-11.0) 5.1 x10^3/uL (4.0-11.0) Red Blood Count 4.03 x10^6/uL (3.50-5.40) 3.67 x10^6/uL (3.50-5.40) Hemoglobin 12.4 g/dL (12.0-15.5) 11.4 g/dL (12.0-15.5) Hematocrit 36.7 % (36.0-47.0) 33.4 % (36.0-47.0) Mean Corpuscular Volume 91 fL (79-100) 91 fL (79-100) Mean Corpuscular Hemoglobin 31 pg (25-35) 31 pg (25-35) Mean Corpuscular Hemoglobin Concent 34 g/dL (31-37) 34 g/dL (31-37) Red Cell Distribution Width 12.6 % (11.5-14.5) 12.6 % (11.5-14.5) Platelet Count 263 x10^3/uL (140-400) 243 x10^3/uL (140-400) Neutrophils (%) (Auto) 76 % (31-73) 70 % (31-73) Lymphocytes (%) (Auto) 12 % (24-48) 15 % (24-48) Monocytes (%) (Auto) 10 % (0-9) 12 % (0-9) Eosinophils (%) (Auto) 2 % (0-3) 2 % (0-3) Basophils (%) (Auto) 1 % (0-3) 1 % (0-3) Neutrophils # (Auto) 4.4 x10^3uL (1.8-7.7) 3.6 x10^3uL (1.8-7.7) Lymphocytes # (Auto) 0.7 x10^3/uL (1.0-4.8) 0.7 x10^3/uL (1.0-4.8) Monocytes # (Auto) 0.5 x10^3/uL (0.0-1.1) 0.6 x10^3/uL (0.0-1.1) Eosinophils # (Auto) 0.1 x10^3/uL (0.0-0.7) 0.1 x10^3/uL (0.0-0.7) Basophils # (Auto) 0.0 x10^3/uL (0.0-0.2) 0.0 x10^3/uL (0.0-0.2) Sodium Level 133 mmol/L (136-145) Potassium Level 4.2 mmol/L (3.5-5.1) Chloride Level 97 mmol/L (98-107) Carbon Dioxide Level 30 mmol/L (21-32) Anion Gap 6 (6-14) Blood Urea Nitrogen 15 mg/dL (7-20) Creatinine 0.9 mg/dL (0.6-1.0) Estimated GFR (Cockcroft-Gault) 60.4 Glucose Level 118 mg/dL (70-99) Calcium Level 9.0 mg/dL (8.5-10.1) Laboratory Tests Test 06/15/18 19:35 06/16/18 03:35 White Blood Count 5.7 x10^3/uL (4.0-11.0) 5.1 x10^3/uL (4.0-11.0) Red Blood Count 4.03 x10^6/uL (3.50-5.40) 3.67 x10^6/uL (3.50-5.40) Hemoglobin 12.4 g/dL (12.0-15.5) 11.4 g/dL (12.0-15.5) Hematocrit 36.7 % (36.0-47.0) 33.4 % (36.0-47.0) Mean Corpuscular Volume 91 fL (79-100) 91 fL (79-100) Mean Corpuscular Hemoglobin 31 pg (25-35) 31 pg (25-35) Mean Corpuscular Hemoglobin Concent 34 g/dL (31-37) 34 g/dL (31-37) Red Cell Distribution Width 12.6 % (11.5-14.5) 12.6 % (11.5-14.5) Platelet Count 263 x10^3/uL (140-400) 243 x10^3/uL (140-400) Neutrophils (%) (Auto) 76 % (31-73) 70 % (31-73) Lymphocytes (%) (Auto) 12 % (24-48) 15 % (24-48) Monocytes (%) (Auto) 10 % (0-9) 12 % (0-9) Eosinophils (%) (Auto) 2 % (0-3) 2 % (0-3) Basophils (%) (Auto) 1 % (0-3) 1 % (0-3) Neutrophils # (Auto) 4.4 x10^3uL (1.8-7.7) 3.6 x10^3uL (1.8-7.7) Lymphocytes # (Auto) 0.7 x10^3/uL (1.0-4.8) 0.7 x10^3/uL (1.0-4.8) Monocytes # (Auto) 0.5 x10^3/uL (0.0-1.1) 0.6 x10^3/uL (0.0-1.1) Eosinophils # (Auto) 0.1 x10^3/uL (0.0-0.7) 0.1 x10^3/uL (0.0-0.7) Basophils # (Auto) 0.0 x10^3/uL (0.0-0.2) 0.0 x10^3/uL (0.0-0.2) Sodium Level 133 mmol/L (136-145) Potassium Level 4.2 mmol/L (3.5-5.1) Chloride Level 97 mmol/L (98-107) Carbon Dioxide Level 30 mmol/L (21-32) Anion Gap 6 (6-14) Blood Urea Nitrogen 15 mg/dL (7-20) Creatinine 0.9 mg/dL (0.6-1.0) Estimated GFR (Cockcroft-Gault) 60.4 Glucose Level 118 mg/dL (70-99) Calcium Level 9.0 mg/dL (8.5-10.1) Medications Current Medications Ondansetron HCl (Zofran) 4 mg PRN Q6HRS PRN IV NAUSEA/VOMITING Last administered on 06/16/18at 06:36; Start 06/15/18 at 14:15 Acetaminophen/ Hydrocodone Bitart (Lortab 5/325) 1 tab PRN Q4HRS PRN PO MILD PAIN; Start 06/15/18 at 14:15 Acetaminophen (Tylenol) 650 mg PRN Q6HRS PRN PO Headaches, Temp > 101.5F; Start 06/15/18 at 14:15 Senna/Docusate Sodium (Senna Plus) 1 tab BID PO Last administered on 06/15/18at 22:08; Start 06/15/18 at 21:00 Magnesium Hydroxide (Milk Of Magnesia) 2,400 mg PRN Q12HR PRN PO CONSTIPATION; Start 06/15/18 at 14:15 Heparin Sodium (Porcine) (Heparin Sodium) 5,000 unit Q8HRS SQ Last administered on 06/15/18at 22:16; Start 06/15/18 at 15:00 Aspirin (Children'S Aspirin) 81 mg DAILY05 PO ; Start 06/16/18 at 05:00 Calcium Carbonate/ Glycine (Tums) 500 mg PRN Q2HR PRN PO reflux; Start at 14:15 Non-Formulary Medication 1 ea DAILY PO ; Start 06/16/18 at 09:00; Stop 06/16/18 at 09:00; Status DC Non-Formulary Medication (Albuterol Sulfate (Ventolin Hfa Inhaler)) 2 puff BID INH ; Start 06/15/18 at 21:00; Status UNV Non-Formulary Medication (Fluticasone Propionate (Flovent 110MCG Hfa)) 2 puff BID IH ; Start 06/15/18 at 21:00; Status UNV Montelukast Sodium (Singulair) 10 mg QHS PO Last administered on 06/15/18at 22: 08; Start 06/15/18 at 21:00 Multivitamins (Thera M Plus) 1 tab DAILY PO Last administered on 06/16/18at 08: 17; Start 06/16/18 at 09:00 Pantoprazole Sodium (Protonix) 40 mg HS PO Last administered on 06/15/18at 23:06 ; Start 06/15/18 at 23:00 Meropenem 500 mg/ Sodium Chloride 50 ml @ 100 mls/hr Q8HRS IV Last administered on 06/16/18at 06:36; Start 06/15/18 at 15:00 Budesonide (Pulmicort) 0.5 mg RTBID NEB Last administered on 06/15/18at 20:05; Start 06/15/18 at 20:00 Albuterol Sulfate (Ventolin Neb Soln) 2.5 mg RTBID NEB Last administered on at 20:05; Start 06/15/18 at 20:00 Non-Formulary Medication 1 ea DAILY PO ; Start 06/15/18 at 23:00; Stop 06/15/18 at 23:00; Status DC Non-Formulary Medication 1 ea HS PO ; Start 06/16/18 at 21:00 Active Scripts Active Reported Omeprazole 10 Mg Capsule.dr 10 Mg PO DAILY Aspirin 81 Mg Tab.chew 81 Mg PO DAILY05 Multivitamins (Multivitamin) 1 Each Tablet 1 Tab PO DAILY Tums (Calcium Carbonate) 200 Mg Tab.chew 200 Mg PO Q4-6HRS PRN Femara (Letrozole) 2.5 Mg Tablet 1 Tab PO DAILY Singulair Tablet (Montelukast Sodium) 10 Mg Tablet 1 Tab PO DAILY Flovent 110MCG Hfa (Fluticasone Propionate) 12 Gm Aer.w.adap 2 Puff IH BID Ventolin Hfa Inhaler (Albuterol Sulfate) 18 Gm Hfa.aer.ad 2 Puff INH BID Vitals/I & O Vital Sign - Last 24 Hours 06/15/18 06/15/18 06/15/18 06/15/18 15:00 19:45 20:01 20:08 Temp 97.9 97.5 97.9 97.5 Pulse 86 95 Resp 20 B/P (MAP) 151/60 (90) 107/51 (69) Pulse Ox 95 93 96 O2 Delivery Room Air Room Air Room Air Room Air 06/15/18 06/16/18 06/16/18 23:45 03:57 07:00 Temp 97.9 98.1 99.4 97.9 98.1 99.4 Pulse 84 76 83 Resp 18 18 18 B/P (MAP) 115/62 (79) 110/54 (72) 113/59 (77) Pulse Ox 95 96 91 O2 Delivery Room Air Room Air Room Air Intake and Output 06/15/18 06/15/18 06/16/18 15:01 23:01 07:01 Intake Total 640 ml 250 ml Output Total 500 ml Balance 140 ml 250 ml STACI VARELA MD Jun 16, 2018 09:10
--- NOTE | 2018-06-16 09:21 | PDOC ---
PULMONARY PROGRESS NOTES Subjective sob slightly better, has cough, no pain, has occ nausea Vitals Vital Signs Date Time Temp Pulse Resp B/P (MAP) Pulse Ox O2 Delivery O2 Flow Rate FiO2 06/16/18 07:00 99.4 83 18 113/59 (77) 91 Room Air 99.4 ROS: No Nausea General: Alert HEENT: Other Lungs: Crackles, Other (r deminished bs) Cardiovascular: S1, S2 Abdomen: Soft, Non-tender Neuro Exam: Alert, Oriented Extremities: No Edema Labs Laboratory Tests Test 06/15/18 19:35 06/16/18 03:35 White Blood Count 5.7 x10^3/uL (4.0-11.0) 5.1 x10^3/uL (4.0-11.0) Red Blood Count 4.03 x10^6/uL (3.50-5.40) 3.67 x10^6/uL (3.50-5.40) Hemoglobin 12.4 g/dL (12.0-15.5) 11.4 g/dL (12.0-15.5) Hematocrit 36.7 % (36.0-47.0) 33.4 % (36.0-47.0) Mean Corpuscular Volume 91 fL (79-100) 91 fL (79-100) Mean Corpuscular Hemoglobin 31 pg (25-35) 31 pg (25-35) Mean Corpuscular Hemoglobin Concent 34 g/dL (31-37) 34 g/dL (31-37) Red Cell Distribution Width 12.6 % (11.5-14.5) 12.6 % (11.5-14.5) Platelet Count 263 x10^3/uL (140-400) 243 x10^3/uL (140-400) Neutrophils (%) (Auto) 76 % (31-73) 70 % (31-73) Lymphocytes (%) (Auto) 12 % (24-48) 15 % (24-48) Monocytes (%) (Auto) 10 % (0-9) 12 % (0-9) Eosinophils (%) (Auto) 2 % (0-3) 2 % (0-3) Basophils (%) (Auto) 1 % (0-3) 1 % (0-3) Neutrophils # (Auto) 4.4 x10^3uL (1.8-7.7) 3.6 x10^3uL (1.8-7.7) Lymphocytes # (Auto) 0.7 x10^3/uL (1.0-4.8) 0.7 x10^3/uL (1.0-4.8) Monocytes # (Auto) 0.5 x10^3/uL (0.0-1.1) 0.6 x10^3/uL (0.0-1.1) Eosinophils # (Auto) 0.1 x10^3/uL (0.0-0.7) 0.1 x10^3/uL (0.0-0.7) Basophils # (Auto) 0.0 x10^3/uL (0.0-0.2) 0.0 x10^3/uL (0.0-0.2) Sodium Level 133 mmol/L (136-145) Potassium Level 4.2 mmol/L (3.5-5.1) Chloride Level 97 mmol/L (98-107) Carbon Dioxide Level 30 mmol/L (21-32) Anion Gap 6 (6-14) Blood Urea Nitrogen 15 mg/dL (7-20) Creatinine 0.9 mg/dL (0.6-1.0) Estimated GFR (Cockcroft-Gault) 60.4 Glucose Level 118 mg/dL (70-99) Calcium Level 9.0 mg/dL (8.5-10.1) Laboratory Tests Test 06/15/18 19:35 06/16/18 03:35 White Blood Count 5.7 x10^3/uL (4.0-11.0) 5.1 x10^3/uL (4.0-11.0) Red Blood Count 4.03 x10^6/uL (3.50-5.40) 3.67 x10^6/uL (3.50-5.40) Hemoglobin 12.4 g/dL (12.0-15.5) 11.4 g/dL (12.0-15.5) Hematocrit 36.7 % (36.0-47.0) 33.4 % (36.0-47.0) Mean Corpuscular Volume 91 fL (79-100) 91 fL (79-100) Mean Corpuscular Hemoglobin 31 pg (25-35) 31 pg (25-35) Mean Corpuscular Hemoglobin Concent 34 g/dL (31-37) 34 g/dL (31-37) Red Cell Distribution Width 12.6 % (11.5-14.5) 12.6 % (11.5-14.5) Platelet Count 263 x10^3/uL (140-400) 243 x10^3/uL (140-400) Neutrophils (%) (Auto) 76 % (31-73) 70 % (31-73) Lymphocytes (%) (Auto) 12 % (24-48) 15 % (24-48) Monocytes (%) (Auto) 10 % (0-9) 12 % (0-9) Eosinophils (%) (Auto) 2 % (0-3) 2 % (0-3) Basophils (%) (Auto) 1 % (0-3) 1 % (0-3) Neutrophils # (Auto) 4.4 x10^3uL (1.8-7.7) 3.6 x10^3uL (1.8-7.7) Lymphocytes # (Auto) 0.7 x10^3/uL (1.0-4.8) 0.7 x10^3/uL (1.0-4.8) Monocytes # (Auto) 0.5 x10^3/uL (0.0-1.1) 0.6 x10^3/uL (0.0-1.1) Eosinophils # (Auto) 0.1 x10^3/uL (0.0-0.7) 0.1 x10^3/uL (0.0-0.7) Basophils # (Auto) 0.0 x10^3/uL (0.0-0.2) 0.0 x10^3/uL (0.0-0.2) Sodium Level 133 mmol/L (136-145) Potassium Level 4.2 mmol/L (3.5-5.1) Chloride Level 97 mmol/L (98-107) Carbon Dioxide Level 30 mmol/L (21-32) Anion Gap 6 (6-14) Blood Urea Nitrogen 15 mg/dL (7-20) Creatinine 0.9 mg/dL (0.6-1.0) Estimated GFR (Cockcroft-Gault) 60.4 Glucose Level 118 mg/dL (70-99) Calcium Level 9.0 mg/dL (8.5-10.1) Medications Active Scripts Medications Dose Route/Sig Max Daily Dose Days Date Category Omeprazole 10 Mg Capsule.dr 10 Mg PO DAILY 06/07/18 Reported Aspirin 81 Mg Tab.chew 81 Mg PO DAILY05 06/07/18 Reported Multivitamins (Multivitamin) 1 Each Tablet 1 Tab PO DAILY 06/07/18 Reported Tums (Calcium Carbonate) 200 Mg Tab.chew 200 Mg PO Q4-6HRS PRN 06/07/18 Reported Femara (Letrozole) 2.5 Mg Tablet 1 Tab PO DAILY 06/07/18 Reported Singulair Tablet (Montelukast Sodium) 10 Mg Tablet 1 Tab PO DAILY 06/07/18 Reported Flovent 110MCG Hfa (Fluticasone Propionate) 12 Gm Aer.w.adap 2 Puff IH BID 06/07/18 Reported Ventolin Hfa Inhaler (Albuterol Sulfate) 18 Gm Hfa.aer.ad 2 Puff INH BID 06/07/[address] 1. Status post right pneumonectomy. 2. Mild lingular nodularity seen on 03/22/2018 has largely resolved and was probably inflammatory in nature. 3. Mild scattered parenchymal scarring on the left 4. Cholelithiasis. Impression . IMPRESSION: 1. Persistent cough with abnormal CT chest with a tiny nodular infiltrate in the left upper lobe. Status post bronchoscopy growing multidrug resistant Pseudomonas in bronchoalveolar lavage. 2. History of a right pneumonectomy for lung cancer in 2002. 3. Possible mild chronic obstructive pulmonary disease. Plan . RECOMMENDATIONS: 1. 02 titration 2. broad spectrum antibiotic, meropenem. id agrees 3. Consult Infectious Disease regarding the duration of antibiotics. 4. If she needs a longer duration, then we will consider a PICC line placement and finished the course of antibiotic as an outpatient by home health. 5. Continue home medications. 6. change BD to qid. 7. ct reviewed, infilt much smaller discussed w pt RADHA JAIN MD Jun 16, 2018 09:21
[2018-06-16] MEDS: ALBUTEROL SULFATE 2.5 MG/3 ML NEBU. NEB SCH (09:34)
[2018-06-16] MEDS: BUDESONIDE 0.5 MG/2 ML NEBU. NEB SCH ×2 (09:35→20:17)
--- NOTE | 2018-06-16 11:12 | PDOC ---
Infectious Disease Note Vital Sign Vital Signs Vital Signs Date Time Temp Pulse Resp B/P (MAP) Pulse Ox O2 Delivery O2 Flow Rate FiO2 06/16/18 09:36 96 Room Air 06/16/18 07:00 99.4 83 18 113/59 (77) 99.4 Labs Lab Laboratory Tests Test 06/15/18 19:35 06/16/18 03:35 White Blood Count 5.7 x10^3/uL (4.0-11.0) 5.1 x10^3/uL (4.0-11.0) Red Blood Count 4.03 x10^6/uL (3.50-5.40) 3.67 x10^6/uL (3.50-5.40) Hemoglobin 12.4 g/dL (12.0-15.5) 11.4 g/dL (12.0-15.5) Hematocrit 36.7 % (36.0-47.0) 33.4 % (36.0-47.0) Mean Corpuscular Volume 91 fL (79-100) 91 fL (79-100) Mean Corpuscular Hemoglobin 31 pg (25-35) 31 pg (25-35) Mean Corpuscular Hemoglobin Concent 34 g/dL (31-37) 34 g/dL (31-37) Red Cell Distribution Width 12.6 % (11.5-14.5) 12.6 % (11.5-14.5) Platelet Count 263 x10^3/uL (140-400) 243 x10^3/uL (140-400) Neutrophils (%) (Auto) 76 % (31-73) 70 % (31-73) Lymphocytes (%) (Auto) 12 % (24-48) 15 % (24-48) Monocytes (%) (Auto) 10 % (0-9) 12 % (0-9) Eosinophils (%) (Auto) 2 % (0-3) 2 % (0-3) Basophils (%) (Auto) 1 % (0-3) 1 % (0-3) Neutrophils # (Auto) 4.4 x10^3uL (1.8-7.7) 3.6 x10^3uL (1.8-7.7) Lymphocytes # (Auto) 0.7 x10^3/uL (1.0-4.8) 0.7 x10^3/uL (1.0-4.8) Monocytes # (Auto) 0.5 x10^3/uL (0.0-1.1) 0.6 x10^3/uL (0.0-1.1) Eosinophils # (Auto) 0.1 x10^3/uL (0.0-0.7) 0.1 x10^3/uL (0.0-0.7) Basophils # (Auto) 0.0 x10^3/uL (0.0-0.2) 0.0 x10^3/uL (0.0-0.2) Sodium Level 133 mmol/L (136-145) Potassium Level 4.2 mmol/L (3.5-5.1) Chloride Level 97 mmol/L (98-107) Carbon Dioxide Level 30 mmol/L (21-32) Anion Gap 6 (6-14) Blood Urea Nitrogen 15 mg/dL (7-20) Creatinine 0.9 mg/dL (0.6-1.0) Estimated GFR (Cockcroft-Gault) 60.4 Glucose Level 118 mg/dL (70-99) Calcium Level 9.0 mg/dL (8.5-10.1) Objective Assessment MDR Pseudomonas respiratory infection s/p BAL on 06/07/2018. History of a right pneumonectomy for lung cancer in 2002. Abx allergies - PCN - swollen lip (unsure if ever had cephalosporin or amox) and Levaquin allergy tendon complications GERD Plan Plan of Care Continue the meropenem as there is no oral option available f/u lab in am Supportive care D/w Thank you [phone] Attending Co-Sign Attending Co-Sign The patient was seen and interviewed as well as examined at the bedside. The chart was reviewed. The case was discussed. Agree with the plan of care. SIVA BERNABE APRN Jun 16, 2018 11:12 TIFFANIE OCONNOR MD Jun 16, 2018 17:12
[2018-06-16 11:14] VITALS: BP 114/51
[2018-06-16] MEDS: IPRATRPIUM/ALBUTEROL 0.5/2.5MG 3 ML NEBU. NEB SCH ×3 (12:55→20:15)
[2018-06-16 14:58] VITALS: BP 90/47
[2018-06-16 19:45] VITALS: BP 92/53
[2018-06-16] MEDS: LACTOBACILLUS RHAMNOSUS GG 1 CAPSULE. PO SCH (20:55)
[2018-06-16] MEDS: PANTOPRAZOLE 40 MG TABLET.DR. PO SCH (20:55)
[2018-06-16] MEDS: LETROZOLE 2.5MG TAB PO SCH (20:58)
[2018-06-16] MEDS: MONTELUKAST SODIUM 10 MG TABLET. PO SCH (21:00)
[2018-06-16 23:15] VITALS: BP 94/42
[2018-06-17 03:43] VITALS: BP 116/68
[2018-06-17 05:04] LABS: BASO % 1 % (0-3); EOS # 0.1 x10^3/uL (0.0-0.7); EOS % 3 % (0-3); HEMATOCRIT 35.7 % (36.0-47.0); LYMPH # 0.7 x10^3/uL (1.0-4.8); LYMPH % 16 % (24-48); MEAN CORPUSCULAR HEMOGLOBIN 31 pg (25-35); MEAN CORPUSCULAR HGB CONC 34 g/dL (31-37); MEAN CORPUSCULAR VOLUME 92 fL (79-100); MONO # 0.6 x10^3/uL (0.0-1.1); MONO % 13 % (0-9); NEUT # 3.1 x10^3uL (1.8-7.7); NEUT % 67 % (31-73); PLATELET COUNT 262 x10^3/uL (140-400); RED BLOOD COUNT 3.89 x10^6/uL (3.50-5.40); RED CELL DISTRIBUTION WIDTH 13.1 % (11.5-14.5); WHITE BLOOD COUNT 4.7 x10^3/uL (4.0-11.0)
--- NOTE | 2018-06-17 05:22 | CONS ---
DATE OF CONSULTATION: 06/16/2018 REFERRING PHYSICIAN: Dr. Ward. REASON FOR CONSULTATION: Multidrug-resistant Pseudomonas on bronchoscopy. 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 She says over the last 2-3 months, she has had a persistent nagging cough with some yellow sputum production and chest congestion. She was treated with a couple of rounds of antibiotics without much improvement. On 06/07/2018, Dr. Saavedra performed a diagnostic bronchoscopy with bronchial alveolar lavage of left lower lobe. There were no endobronchial lesions noted and the vocal cords were normal. The culture grew respiratory raheem as well as Pseudomonas aeruginosa resistant to Cipro, piperacillin and ticarcillin and intermediate sensitivity to levofloxacin and tobramycin, otherwise sensitive. She has since been admitted and started on meropenem. A CT chest without contrast showed resolution of mild lingular nodularity that was seen on a previous study in March 2018 and mild scattered parenchymal scarring on the left. The patient denies fevers, chills or night sweats. For the past several months, she has woken up from sleep with vomiting, which has since improved with omeprazole and change of diet habits. As such, she has lost about 10 pounds. She had a little bit of a headache this morning. Denies sinus congestion or sore throat. Denies chest discomfort or shortness of air. Denies nausea, vomiting or diarrhea. She had a bowel movement this morning. Her energy level is good. PAST MEDICAL HISTORY: GERD, asthma. PAST SURGICAL HISTORY: Right pneumonectomy in 2002 for a carcinoid tumor. SOCIAL HISTORY: The patient lives at home. She is . Former smoker. FAMILY HISTORY: Noncontributory. ALLERGIES: PENICILLIN, CAUSING HER LIPS TO SWELL. ALSO, LEVAQUIN, CAUSING MUSCLE CRAMPS. MEDICATIONS: Meropenem since 06/15/2018, Tylenol, aspirin, Pulmicort, Tums, heparin subcutaneous, Lortab, DuoNeb, milk of magnesia, Singulair, multivitamin, Senokot, Protonix, ondansetron. REVIEW OF SYSTEMS: Per HPI, otherwise all other review of systems are negative. PHYSICAL EXAMINATION: VITAL SIGNS: Temperature 99.4, blood pressure 113/59, heart rate 83, respiratory rate 18, pulse oximetry is 96% on room air. BMI 23. GENERAL: The patient is sitting up in a chair, alert, smiling. HEENT: Pupils equally round, normal conjunctivae. Oral cavity, pharynx pink and moist. NECK: Supple. LUNGS: Clear lung mcknight on the left. Nonlabored. HEART: S1, S2. ABDOMEN: Nondistended, soft and nontender with bowel sounds present. EXTREMITIES: No gross edema or cyanosis. SKIN: Warm without rash. NEUROLOGIC: Alert and oriented x 3. LABORATORY DATA: WBC 5.1, hemoglobin 11.4, platelet count 243,000. Sodium 133, potassium 4.2, creatinine 0.9, BUN 15. BAL culture per HPI. Chest CT per HPI. IMPRESSION: 1. Multidrug resistant Pseudomonas respiratory infection, status post bronchoalveolar lavage on 06/07/2018. 2. History of right pneumonectomy for lung cancer in 2002. 3. PENICILLIN AND LEVAQUIN allergy as mentioned above. 4. Gastroesophageal reflux disease. PLAN: Continue the meropenem as there is no oral option available. Labs have been ordered for the morning. Supportive care. Thank you, Dr. Ward, for asking us to participate in this patient's care. Should you have further questions or concerns, please call. TIFFANIE OCONNOR MD DR: KI/brigid JOB#: [id number] / [id number] MYRA
[2018-06-17 05:27] LABS: CALCIUM 8.7 mg/dL (8.5-10.1); GFR 53.5; POTASSIUM 4.4 mmol/L (3.5-5.1)
[2018-06-17] MEDS: HEPARIN for SUB-Q USE 5,000 UNIT/ML VIAL. SQ SCH ×3 (06:13→22:09)
[2018-06-17] MEDS: ASPIRIN CHEWABLE 81 MG TABLET. PO SCH (06:14)
[2018-06-17] MEDS: MEROPENEM 500 MG in IV NORMAL SALINE 50ML 50 ML IV SCH ×3 (06:14→22:12)
[2018-06-17] MEDS: BUDESONIDE 0.5 MG/2 ML NEBU. NEB SCH ×2 (07:09→21:01)
[2018-06-17] MEDS: IPRATRPIUM/ALBUTEROL 0.5/2.5MG 3 ML NEBU. NEB SCH ×4 (07:09→21:01)
[2018-06-17 07:54] VITALS: BP 122/74
[2018-06-17] MEDS: SENNOSIDES/DOCUSATE 8.6/50MG TABLET. PO SCH ×2 (08:11→22:12)
[2018-06-17] MEDS: LACTOBACILLUS RHAMNOSUS GG 1 CAPSULE. PO SCH ×2 (08:11→22:13)
[2018-06-17] MEDS: MULTIVITAMIN with MINERAL TABLET. PO SCH (08:11)
--- NOTE | 2018-06-17 10:09 | PDOC ---
PULMONARY PROGRESS NOTES Subjective sob cough better, feels better, no pain, Vitals Vital Signs Date Time Temp Pulse Resp B/P (MAP) Pulse Ox O2 Delivery O2 Flow Rate FiO2 06/17/18 08:00 Room Air 06/17/18 07:54 72 18 122/74 (90) 93 06/17/18 03:43 97.8 97.8 ROS: No Nausea General: Alert HEENT: Other Lungs: Crackles, Other (r deminished bs) Cardiovascular: S1, S2 Abdomen: Soft, Non-tender Neuro Exam: Alert, Oriented Extremities: No Edema Labs Laboratory Tests Test 06/15/18 19:35 06/16/18 03:35 06/17/18 04:30 White Blood Count 5.7 x10^3/uL (4.0-11.0) 5.1 x10^3/uL (4.0-11.0) 4.7 x10^3/uL (4.0-11.0) Red Blood Count 4.03 x10^6/uL (3.50-5.40) 3.67 x10^6/uL (3.50-5.40) 3.89 x10^6/uL (3.50-5.40) Hemoglobin 12.4 g/dL (12.0-15.5) 11.4 g/dL (12.0-15.5) 12.0 g/dL (12.0-15.5) Hematocrit 36.7 % (36.0-47.0) 33.4 % (36.0-47.0) 35.7 % (36.0-47.0) Mean Corpuscular Volume 91 fL (79-100) 91 fL (79-100) 92 fL (79-100) Mean Corpuscular Hemoglobin 31 pg (25-35) 31 pg (25-35) 31 pg (25-35) Mean Corpuscular Hemoglobin Concent 34 g/dL (31-37) 34 g/dL (31-37) 34 g/dL (31-37) Red Cell Distribution Width 12.6 % (11.5-14.5) 12.6 % (11.5-14.5) 13.1 % (11.5-14.5) Platelet Count 263 x10^3/uL (140-400) 243 x10^3/uL (140-400) 262 x10^3/uL (140-400) Neutrophils (%) (Auto) 76 % (31-73) 70 % (31-73) 67 % (31-73) Lymphocytes (%) (Auto) 12 % (24-48) 15 % (24-48) 16 % (24-48) Monocytes (%) (Auto) 10 % (0-9) 12 % (0-9) 13 % (0-9) Eosinophils (%) (Auto) 2 % (0-3) 2 % (0-3) 3 % (0-3) Basophils (%) (Auto) 1 % (0-3) 1 % (0-3) 1 % (0-3) Neutrophils # (Auto) 4.4 x10^3uL (1.8-7.7) 3.6 x10^3uL (1.8-7.7) 3.1 x10^3uL (1.8-7.7) Lymphocytes # (Auto) 0.7 x10^3/uL (1.0-4.8) 0.7 x10^3/uL (1.0-4.8) 0.7 x10^3/uL (1.0-4.8) Monocytes # (Auto) 0.5 x10^3/uL (0.0-1.1) 0.6 x10^3/uL (0.0-1.1) 0.6 x10^3/uL (0.0-1.1) Eosinophils # (Auto) 0.1 x10^3/uL (0.0-0.7) 0.1 x10^3/uL (0.0-0.7) 0.1 x10^3/uL (0.0-0.7) Basophils # (Auto) 0.0 x10^3/uL (0.0-0.2) 0.0 x10^3/uL (0.0-0.2) 0.0 x10^3/uL (0.0-0.2) Sodium Level 133 mmol/L (136-145) 136 mmol/L (136-145) Potassium Level 4.2 mmol/L (3.5-5.1) 4.4 mmol/L (3.5-5.1) Chloride Level 97 mmol/L (98-107) 101 mmol/L (98-107) Carbon Dioxide Level 30 mmol/L (21-32) 30 mmol/L (21-32) Anion Gap 6 (6-14) 5 (6-14) Blood Urea Nitrogen 15 mg/dL (7-20) 15 mg/dL (7-20) Creatinine 0.9 mg/dL (0.6-1.0) 1.0 mg/dL (0.6-1.0) Estimated GFR (Cockcroft-Gault) 60.4 53.5 Glucose Level 118 mg/dL (70-99) 91 mg/dL (70-99) Calcium Level 9.0 mg/dL (8.5-10.1) 8.7 mg/dL (8.5-10.1) Laboratory Tests Test 06/17/18 04:30 White Blood Count 4.7 x10^3/uL (4.0-11.0) Red Blood Count 3.89 x10^6/uL (3.50-5.40) Hemoglobin 12.0 g/dL (12.0-15.5) Hematocrit 35.7 % (36.0-47.0) Mean Corpuscular Volume 92 fL (79-100) Mean Corpuscular Hemoglobin 31 pg (25-35) Mean Corpuscular Hemoglobin Concent 34 g/dL (31-37) Red Cell Distribution Width 13.1 % (11.5-14.5) Platelet Count 262 x10^3/uL (140-400) Neutrophils (%) (Auto) 67 % (31-73) Lymphocytes (%) (Auto) 16 % (24-48) Monocytes (%) (Auto) 13 % (0-9) Eosinophils (%) (Auto) 3 % (0-3) Basophils (%) (Auto) 1 % (0-3) Neutrophils # (Auto) 3.1 x10^3uL (1.8-7.7) Lymphocytes # (Auto) 0.7 x10^3/uL (1.0-4.8) Monocytes # (Auto) 0.6 x10^3/uL (0.0-1.1) Eosinophils # (Auto) 0.1 x10^3/uL (0.0-0.7) Basophils # (Auto) 0.0 x10^3/uL (0.0-0.2) Sodium Level 136 mmol/L (136-145) Potassium Level 4.4 mmol/L (3.5-5.1) Chloride Level 101 mmol/L (98-107) Carbon Dioxide Level 30 mmol/L (21-32) Anion Gap 5 (6-14) Blood Urea Nitrogen 15 mg/dL (7-20) Creatinine 1.0 mg/dL (0.6-1.0) Estimated GFR (Cockcroft-Gault) 53.5 Glucose Level 91 mg/dL (70-99) Calcium Level 8.7 mg/dL (8.5-10.1) Medications Active Scripts Medications Dose Route/Sig Max Daily Dose Days Date Category Omeprazole 10 Mg Capsule.dr 10 Mg PO DAILY 06/07/18 Reported Aspirin 81 Mg Tab.chew 81 Mg PO DAILY05 06/07/18 Reported Multivitamins (Multivitamin) 1 Each Tablet 1 Tab PO DAILY 06/07/18 Reported Tums (Calcium Carbonate) 200 Mg Tab.chew 200 Mg PO Q4-6HRS PRN 06/07/18 Reported Femara (Letrozole) 2.5 Mg Tablet 1 Tab PO DAILY 06/07/18 Reported Singulair Tablet (Montelukast Sodium) 10 Mg Tablet 1 Tab PO DAILY 06/07/18 Reported Flovent 110MCG Hfa (Fluticasone Propionate) 12 Gm Aer.w.adap 2 Puff IH BID 06/07/18 Reported Ventolin Hfa Inhaler (Albuterol Sulfate) 18 Gm Hfa.aer.ad 2 Puff INH BID 06/07/[address] 1. Status post right pneumonectomy. 2. Mild lingular nodularity seen on 03/22/2018 has largely resolved and was probably inflammatory in nature. 3. Mild scattered parenchymal scarring on the left 4. Cholelithiasis. Impression . IMPRESSION: 1. Persistent cough with abnormal CT chest with a tiny nodular infiltrate in the left upper lobe. Status post bronchoscopy growing multidrug resistant Pseudomonas in bronchoalveolar lavage. 2. History of a right pneumonectomy for lung cancer in 2002. 3. Possible mild chronic obstructive pulmonary disease. Plan . RECOMMENDATIONS: 1. 02 titration 2. broad spectrum antibiotic, meropenem. per id 3. the duration of antibiotics per ID. 4. If she needs a longer duration, then we will consider a PICC line placement and finished the course of antibiotic as an outpatient by home health. 5. Continue home medications. 6. BD qid. 7. ct reviewed, infilt much smaller discussed w pt RADHA JAIN MD Jun 17, 2018 10:09
--- NOTE | 2018-06-17 11:26 | PDOC ---
PROGRESS NOTES Chief Complaint Chief Complaint 1. Persistent cough with abnormal CT chest with a tiny nodular infiltrate in the left upper lobe. Status post bronchoscopy growing multidrug resistant Pseudomonas in bronchoalveolar lavage. 2. History of a right pneumonectomy for lung cancer in 2002. 3. Possible mild chronic obstructive pulmonary disease. 4. GERD? History of Present Illness History of Present Illness She is ambulating around the halls ID note reviewed needs meropenem IV and there is no oral substitute IV meropenem is currently every 8 hrs No fevers PLAN cont IV meropenem Social work consult tomorrow for DC planning Vitals Vitals Vital Signs Date Time Temp Pulse Resp B/P (MAP) Pulse Ox O2 Delivery O2 Flow Rate FiO2 06/17/18 08:00 Room Air 06/17/18 07:54 72 18 122/74 (90) 93 06/17/18 03:43 97.8 97.8 Physical Exam General: Alert, Oriented X3, Cooperative, No acute distress Heart: Regular rate, Normal S1, Normal S2 Lungs: Crackles, Other (r deminished bs) Abdomen: Normal bowel sounds, Soft, No tenderness, No hepatosplenomegaly, No masses Extremities: No clubbing, No cyanosis, No edema, Normal pulses, No tenderness/ swelling Skin: No rashes, No breakdown, No significant lesion Labs LABS Laboratory Tests Test 06/17/18 04:30 White Blood Count 4.7 x10^3/uL (4.0-11.0) Red Blood Count 3.89 x10^6/uL (3.50-5.40) Hemoglobin 12.0 g/dL (12.0-15.5) Hematocrit 35.7 % (36.0-47.0) Mean Corpuscular Volume 92 fL (79-100) Mean Corpuscular Hemoglobin 31 pg (25-35) Mean Corpuscular Hemoglobin Concent 34 g/dL (31-37) Red Cell Distribution Width 13.1 % (11.5-14.5) Platelet Count 262 x10^3/uL (140-400) Neutrophils (%) (Auto) 67 % (31-73) Lymphocytes (%) (Auto) 16 % (24-48) Monocytes (%) (Auto) 13 % (0-9) Eosinophils (%) (Auto) 3 % (0-3) Basophils (%) (Auto) 1 % (0-3) Neutrophils # (Auto) 3.1 x10^3uL (1.8-7.7) Lymphocytes # (Auto) 0.7 x10^3/uL (1.0-4.8) Monocytes # (Auto) 0.6 x10^3/uL (0.0-1.1) Eosinophils # (Auto) 0.1 x10^3/uL (0.0-0.7) Basophils # (Auto) 0.0 x10^3/uL (0.0-0.2) Sodium Level 136 mmol/L (136-145) Potassium Level 4.4 mmol/L (3.5-5.1) Chloride Level 101 mmol/L (98-107) Carbon Dioxide Level 30 mmol/L (21-32) Anion Gap 5 (6-14) Blood Urea Nitrogen 15 mg/dL (7-20) Creatinine 1.0 mg/dL (0.6-1.0) Estimated GFR (Cockcroft-Gault) 53.5 Glucose Level 91 mg/dL (70-99) Calcium Level 8.7 mg/dL (8.5-10.1) Review of Systems Review of Systems A 14 point ROS was completed with the following noted as positive: Other systems reviewed and negative. \CONSTITUTIONAL: No fever or chills EYES: No recent changes SKIN: No rash or itching CARDIOVASCULAR: No chest pain, syncope, palpitations, or edema RESPIRATORY: No SOB or cough GASTROINTESTINAL: No nausea, vomiting or abdominal pain NEUROLOGICAL: No headaches or weakness ENDOCRINE: No cold or heat intolerance GENITOURINARY: No urgency or frequency of urination MUSCULOSKELETAL: No back pain or joint pain LYMPHATICS: No enlarged lymph nodes PSYCHIATRIC: No anxiety or depression Comment Review of Relevant I have reviewed the following items galen (where applicable) has been applied. Labs Laboratory Tests Test 06/15/18 19:35 06/16/18 03:35 06/17/18 04:30 White Blood Count 5.7 x10^3/uL (4.0-11.0) 5.1 x10^3/uL (4.0-11.0) 4.7 x10^3/uL (4.0-11.0) Red Blood Count 4.03 x10^6/uL (3.50-5.40) 3.67 x10^6/uL (3.50-5.40) 3.89 x10^6/uL (3.50-5.40) Hemoglobin 12.4 g/dL (12.0-15.5) 11.4 g/dL (12.0-15.5) 12.0 g/dL (12.0-15.5) Hematocrit 36.7 % (36.0-47.0) 33.4 % (36.0-47.0) 35.7 % (36.0-47.0) Mean Corpuscular Volume 91 fL (79-100) 91 fL (79-100) 92 fL (79-100) Mean Corpuscular Hemoglobin 31 pg (25-35) 31 pg (25-35) 31 pg (25-35) Mean Corpuscular Hemoglobin Concent 34 g/dL (31-37) 34 g/dL (31-37) 34 g/dL (31-37) Red Cell Distribution Width 12.6 % (11.5-14.5) 12.6 % (11.5-14.5) 13.1 % (11.5-14.5) Platelet Count 263 x10^3/uL (140-400) 243 x10^3/uL (140-400) 262 x10^3/uL (140-400) Neutrophils (%) (Auto) 76 % (31-73) 70 % (31-73) 67 % (31-73) Lymphocytes (%) (Auto) 12 % (24-48) 15 % (24-48) 16 % (24-48) Monocytes (%) (Auto) 10 % (0-9) 12 % (0-9) 13 % (0-9) Eosinophils (%) (Auto) 2 % (0-3) 2 % (0-3) 3 % (0-3) Basophils (%) (Auto) 1 % (0-3) 1 % (0-3) 1 % (0-3) Neutrophils # (Auto) 4.4 x10^3uL (1.8-7.7) 3.6 x10^3uL (1.8-7.7) 3.1 x10^3uL (1.8-7.7) Lymphocytes # (Auto) 0.7 x10^3/uL (1.0-4.8) 0.7 x10^3/uL (1.0-4.8) 0.7 x10^3/uL (1.0-4.8) Monocytes # (Auto) 0.5 x10^3/uL (0.0-1.1) 0.6 x10^3/uL (0.0-1.1) 0.6 x10^3/uL (0.0-1.1) Eosinophils # (Auto) 0.1 x10^3/uL (0.0-0.7) 0.1 x10^3/uL (0.0-0.7) 0.1 x10^3/uL (0.0-0.7) Basophils # (Auto) 0.0 x10^3/uL (0.0-0.2) 0.0 x10^3/uL (0.0-0.2) 0.0 x10^3/uL (0.0-0.2) Sodium Level 133 mmol/L (136-145) 136 mmol/L (136-145) Potassium Level 4.2 mmol/L (3.5-5.1) 4.4 mmol/L (3.5-5.1) Chloride Level 97 mmol/L (98-107) 101 mmol/L (98-107) Carbon Dioxide Level 30 mmol/L (21-32) 30 mmol/L (21-32) Anion Gap 6 (6-14) 5 (6-14) Blood Urea Nitrogen 15 mg/dL (7-20) 15 mg/dL (7-20) Creatinine 0.9 mg/dL (0.6-1.0) 1.0 mg/dL (0.6-1.0) Estimated GFR (Cockcroft-Gault) 60.4 53.5 Glucose Level 118 mg/dL (70-99) 91 mg/dL (70-99) Calcium Level 9.0 mg/dL (8.5-10.1) 8.7 mg/dL (8.5-10.1) Laboratory Tests Test 06/17/18 04:30 White Blood Count 4.7 x10^3/uL (4.0-11.0) Red Blood Count 3.89 x10^6/uL (3.50-5.40) Hemoglobin 12.0 g/dL (12.0-15.5) Hematocrit 35.7 % (36.0-47.0) Mean Corpuscular Volume 92 fL (79-100) Mean Corpuscular Hemoglobin 31 pg (25-35) Mean Corpuscular Hemoglobin Concent 34 g/dL (31-37) Red Cell Distribution Width 13.1 % (11.5-14.5) Platelet Count 262 x10^3/uL (140-400) Neutrophils (%) (Auto) 67 % (31-73) Lymphocytes (%) (Auto) 16 % (24-48) Monocytes (%) (Auto) 13 % (0-9) Eosinophils (%) (Auto) 3 % (0-3) Basophils (%) (Auto) 1 % (0-3) Neutrophils # (Auto) 3.1 x10^3uL (1.8-7.7) Lymphocytes # (Auto) 0.7 x10^3/uL (1.0-4.8) Monocytes # (Auto) 0.6 x10^3/uL (0.0-1.1) Eosinophils # (Auto) 0.1 x10^3/uL (0.0-0.7) Basophils # (Auto) 0.0 x10^3/uL (0.0-0.2) Sodium Level 136 mmol/L (136-145) Potassium Level 4.4 mmol/L (3.5-5.1) Chloride Level 101 mmol/L (98-107) Carbon Dioxide Level 30 mmol/L (21-32) Anion Gap 5 (6-14) Blood Urea Nitrogen 15 mg/dL (7-20) Creatinine 1.0 mg/dL (0.6-1.0) Estimated GFR (Cockcroft-Gault) 53.5 Glucose Level 91 mg/dL (70-99) Calcium Level 8.7 mg/dL (8.5-10.1) Medications Current Medications Ondansetron HCl (Zofran) 4 mg PRN Q6HRS PRN IV NAUSEA/VOMITING Last administered on 06/16/18at 06:36; Start 06/15/18 at 14:15 Acetaminophen/ Hydrocodone Bitart (Lortab 5/325) 1 tab PRN Q4HRS PRN PO MILD PAIN; Start 06/15/18 at 14:15 Acetaminophen (Tylenol) 650 mg PRN Q6HRS PRN PO Headaches, Temp > 101.5F; Start 06/15/18 at 14:15 Senna/Docusate Sodium (Senna Plus) 1 tab BID PO Last administered on 06/17/18 08:11; Start 06/15/18 at 21:00 Magnesium Hydroxide (Milk Of Magnesia) 2,400 mg PRN Q12HR PRN PO CONSTIPATION; Start 06/15/18 at 14:15 Heparin Sodium (Porcine) (Heparin Sodium) 5,000 unit Q8HRS SQ Last administered on 06/17/18 06:13; Start 06/15/18 at 15:00 Aspirin (Children'S Aspirin) 81 mg DAILY05 PO Last administered on 06/17/18 06 :14; Start 06/16/18 at 05:00 Calcium Carbonate/ Glycine (Tums) 500 mg PRN Q2HR PRN PO reflux; Start at 14:15 Non-Formulary Medication 1 ea DAILY PO ; Start 06/16/18 at 09:00; Stop 06/16/18 at 09:00; Status DC Non-Formulary Medication (Albuterol Sulfate (Ventolin Hfa Inhaler)) 2 puff BID INH ; Start 06/15/18 at 21:00; Status UNV Non-Formulary Medication (Fluticasone Propionate (Flovent 110MCG Hfa)) 2 puff BID IH ; Start 06/15/18 at 21:00; Status UNV Montelukast Sodium (Singulair) 10 mg QHS PO Last administered on 06/16/18at 21: 00; Start 06/15/18 at 21:00 Multivitamins (Thera M Plus) 1 tab DAILY PO Last administered on 06/17/18 08: 11; Start 06/16/18 at 09:00 Pantoprazole Sodium (Protonix) 40 mg HS PO Last administered on 06/16/18at 20:55 ; Start 06/15/18 at 23:00 Meropenem 500 mg/ Sodium Chloride 50 ml @ 100 mls/hr Q8HRS IV Last administered on 06/17/18 06:14; Start 06/15/18 at 15:00 Budesonide (Pulmicort) 0.5 mg RTBID NEB Last administered on 1/27/19at 07:09; Start 06/15/18 at 20:00 Albuterol Sulfate (Ventolin Neb Soln) 2.5 mg RTBID NEB Last administered on at 09:34; Start 06/15/18 at 20:00; Stop 06/16/18 at 09:40; Status DC Non-Formulary Medication 1 ea DAILY PO ; Start 06/15/18 at 23:00; Stop 06/15/18 at 23:00; Status DC Non-Formulary Medication 1 ea HS PO Last administered on 06/16/18at 20:58; Start 06/16/18 at 21:00 Albuterol/ Ipratropium (Duoneb) 3 ml RTQID NEB Last administered on 06/17/18at 11:22; Start 06/16/18 at 12:00 Lactobacillus Rhamnosus (Culturelle) 1 cap BID PO Last administered on at 08:11; Start 06/16/18 at 21:00 Active Scripts Active Reported Omeprazole 10 Mg Capsule.dr 10 Mg PO DAILY Aspirin 81 Mg Tab.chew 81 Mg PO DAILY05 Multivitamins (Multivitamin) 1 Each Tablet 1 Tab PO DAILY Tums (Calcium Carbonate) 200 Mg Tab.chew 200 Mg PO Q4-6HRS PRN Femara (Letrozole) 2.5 Mg Tablet 1 Tab PO DAILY Singulair Tablet (Montelukast Sodium) 10 Mg Tablet 1 Tab PO DAILY Flovent 110MCG Hfa (Fluticasone Propionate) 12 Gm Aer.w.adap 2 Puff IH BID Ventolin Hfa Inhaler (Albuterol Sulfate) 18 Gm Hfa.aer.ad 2 Puff INH BID Vitals/I & O Vital Sign - Last 24 Hours 06/16/18 06/16/18 06/16/18 06/16/18 12:56 14:58 19:45 20:18 Temp 98.6 98.3 98.6 98.3 Pulse 96 79 Resp 16 16 B/P (MAP) 90/47 (61) 92/53 (66) Pulse Ox 97 95 92 100 O2 Delivery Room Air Room Air Room Air Room Air 06/16/18 06/17/18 06/17/18 06/17/18 23:15 03:43 07:10 07:54 Temp 98.2 97.8 98.2 97.8 Pulse 90 90 72 Resp 16 16 18 B/P (MAP) 94/42 (59) 116/68 (84) 122/74 (90) Pulse Ox 92 92 98 93 O2 Delivery Room Air Room Air Room Air Room Air 06/17/18 08:00 O2 Delivery Room Air Intake and Output 06/16/18 06/16/18 06/17/18 15:01 23:01 07:01 Intake Total 460 ml 470 ml 440 ml Output Total 7 ml Balance 460 ml 463 ml 440 ml STACI VARELA MD Jun 17, 2018 11:26
[2018-06-17 11:32] VITALS: BP 118/68
--- NOTE | 2018-06-17 12:19 | PDOC ---
Infectious Disease Note Subjective Subjective Says feeling pretty well except for nagging cough Says not feeling any different since starting on the antibiotics Denies F/C/S/N/V/D/SOA/CP ROS ROS per HPI otherwise neg Vital Sign Vital Signs Vital Signs Date Time Temp Pulse Resp B/P (MAP) Pulse Ox O2 Delivery O2 Flow Rate FiO2 06/17/18 11:32 97.8 110 18 118/68 (85) 93 Room Air 97.8 Physical Exam PHYSICAL EXAM GENERAL: Sitting in the chair, alert, smiling HEENT: Pupils equally round, normal conjunctivae. Oral cavity, pharynx pink and moist. NECK: Supple. LUNGS: Clear lung mcknight on the left. Nonlabored. HEART: S1, S2. ABDOMEN: Nondistended, soft and nontender with bowel sounds present. EXTREMITIES: No gross edema or cyanosis. SKIN: Warm without rash. NEUROLOGIC: Alert and oriented x 3. Labs Lab Laboratory Tests Test 06/17/18 04:30 White Blood Count 4.7 x10^3/uL (4.0-11.0) Red Blood Count 3.89 x10^6/uL (3.50-5.40) Hemoglobin 12.0 g/dL (12.0-15.5) Hematocrit 35.7 % (36.0-47.0) Mean Corpuscular Volume 92 fL (79-100) Mean Corpuscular Hemoglobin 31 pg (25-35) Mean Corpuscular Hemoglobin Concent 34 g/dL (31-37) Red Cell Distribution Width 13.1 % (11.5-14.5) Platelet Count 262 x10^3/uL (140-400) Neutrophils (%) (Auto) 67 % (31-73) Lymphocytes (%) (Auto) 16 % (24-48) Monocytes (%) (Auto) 13 % (0-9) Eosinophils (%) (Auto) 3 % (0-3) Basophils (%) (Auto) 1 % (0-3) Neutrophils # (Auto) 3.1 x10^3uL (1.8-7.7) Lymphocytes # (Auto) 0.7 x10^3/uL (1.0-4.8) Monocytes # (Auto) 0.6 x10^3/uL (0.0-1.1) Eosinophils # (Auto) 0.1 x10^3/uL (0.0-0.7) Basophils # (Auto) 0.0 x10^3/uL (0.0-0.2) Sodium Level 136 mmol/L (136-145) Potassium Level 4.4 mmol/L (3.5-5.1) Chloride Level 101 mmol/L (98-107) Carbon Dioxide Level 30 mmol/L (21-32) Anion Gap 5 (6-14) Blood Urea Nitrogen 15 mg/dL (7-20) Creatinine 1.0 mg/dL (0.6-1.0) Estimated GFR (Cockcroft-Gault) 53.5 Glucose Level 91 mg/dL (70-99) Calcium Level 8.7 mg/dL (8.5-10.1) Objective Assessment MDR Pseudomonas respiratory infection s/p BAL on 06/07/2018. History of a right pneumonectomy for lung cancer in 2002. Abx allergies - PCN - swollen lip (unsure if ever had cephalosporin or amox) and Levaquin allergy tendon complications GERD Plan Plan of Care Continue the meropenem as there is no oral option available will evaluate duration depending on response Monitor labs/temp Supportive care Attending Co-Sign Attending Co-Sign The patient was seen and interviewed as well as examined at the bedside. The chart was reviewed. The case was discussed. Agree with the plan of care. SIVA BERNABE APRN Jun 17, 2018 12:19 TIFFANIE OCONNOR MD Jun 17, 2018 15:39
[2018-06-17 15:20] VITALS: BP 104/56
[2018-06-17] MEDS ORDERED: BENZOCAINE/MENTHOL LOZENGE. PO PRN (17:45)
[2018-06-17 19:47] VITALS: BP 120/66
[2018-06-17] MEDS: LETROZOLE 2.5MG TAB PO SCH (22:10)
[2018-06-17] MEDS: MONTELUKAST SODIUM 10 MG TABLET. PO SCH (22:12)
[2018-06-17] MEDS: PANTOPRAZOLE 40 MG TABLET.DR. PO SCH (22:13)
[2018-06-17 23:16] VITALS: BP 103/61
[2018-06-18 03:36] VITALS: BP 128/77
[2018-06-18 04:25] LABS: BASO % 1 % (0-3); EOS # 0.2 x10^3/uL (0.0-0.7); EOS % 4 % (0-3); HEMATOCRIT 34.1 % (36.0-47.0); HEMOGLOBIN 11.4 g/dL (12.0-15.5); LYMPH # 0.8 x10^3/uL (1.0-4.8); LYMPH % 17 % (24-48); MEAN CORPUSCULAR HEMOGLOBIN 31 pg (25-35); MEAN CORPUSCULAR HGB CONC 33 g/dL (31-37); MEAN CORPUSCULAR VOLUME 92 fL (79-100); MONO # 0.6 x10^3/uL (0.0-1.1); MONO % 12 % (0-9); NEUT # 3.2 x10^3uL (1.8-7.7); NEUT % 66 % (31-73); PLATELET COUNT 249 x10^3/uL (140-400); RED CELL DISTRIBUTION WIDTH 12.9 % (11.5-14.5); WHITE BLOOD COUNT 4.9 x10^3/uL (4.0-11.0)
[2018-06-18 05:34] LABS: CALCIUM 9.2 mg/dL (8.5-10.1); CREATININE 0.9 mg/dL (0.6-1.0); GFR 60.4; POTASSIUM 4.5 mmol/L (3.5-5.1)
[2018-06-18] MEDS: HEPARIN for SUB-Q USE 5,000 UNIT/ML VIAL. SQ SCH ×3 (05:49→22:00)
[2018-06-18] MEDS: MEROPENEM 500 MG in IV NORMAL SALINE 50ML 50 ML IV SCH ×3 (05:50→22:00)
[2018-06-18] MEDS: ASPIRIN CHEWABLE 81 MG TABLET. PO SCH (05:50)
[2018-06-18 07:00] VITALS: BP 131/82
--- NOTE | 2018-06-18 07:04 | NUR ---
A/O x4. RA. VSS. Up ad aneudy. On Chemo PO med. Chemo and fall precautions maintained. Call light within reach. Denies pain or any other discomfort at this time. Will continue to monitor.
[2018-06-18] MEDS: BUDESONIDE 0.5 MG/2 ML NEBU. NEB SCH ×2 (08:37→20:48)
[2018-06-18] MEDS: IPRATRPIUM/ALBUTEROL 0.5/2.5MG 3 ML NEBU. NEB SCH ×4 (08:38→20:48)
[2018-06-18] MEDS: MULTIVITAMIN with MINERAL TABLET. PO SCH (09:13)
[2018-06-18] MEDS: SENNOSIDES/DOCUSATE 8.6/50MG TABLET. PO SCH ×2 (09:13→21:00)
[2018-06-18] MEDS: LACTOBACILLUS RHAMNOSUS GG 1 CAPSULE. PO SCH ×2 (09:13→21:00)
--- NOTE | 2018-06-18 09:56 | NUR ---
IP: Pt has a recent hx of (R) PSA in bronchwash specimen on 06/07/18. Pt to be in contact precautions.
[2018-06-18 11:00] VITALS: BP 102/62
--- NOTE | 2018-06-18 11:41 | PDOC ---
PROGRESS NOTES Chief Complaint Chief Complaint Positive Bronchoscopy culture (pseudomonas) History of Present Illness History of Present Illness Patient seen and examined this morning. She seems well and despite her extensive history of cancer is well spirited. We discussed her current treatment plan and that her antibiotics have to be given IV, so she will likely remain admitted until complete. Vitals Vitals Vital Signs Date Time Temp Pulse Resp B/P (MAP) Pulse Ox O2 Delivery O2 Flow Rate FiO2 06/18/18 11:00 97.9 96 18 102/62 (75) 93 Room Air 97.9 Physical Exam Physical Exam GENERAL: Sitting in the chair, alert, smiling HEENT: Pupils equally round, normal conjunctivae. Oral cavity, pharynx pink and moist. NECK: Supple. LUNGS: Clear lung mcknight on the left. Nonlabored. HEART: S1, S2. ABDOMEN: Nondistended, soft and nontender with bowel sounds present. EXTREMITIES: No gross edema or cyanosis. SKIN: Warm without rash. NEUROLOGIC: Alert and oriented x 3. General: Alert, Oriented X3, Cooperative, No acute distress Heart: Regular rate, Normal S1, Normal S2 Lungs: Crackles, Other (r deminished bs) Abdomen: Normal bowel sounds, Soft, No tenderness, No hepatosplenomegaly, No masses Extremities: No clubbing, No cyanosis, No edema, Normal pulses, No tenderness/ swelling Skin: No rashes, No breakdown, No significant lesion Labs LABS Laboratory Tests Test 06/18/18 03:40 White Blood Count 4.9 x10^3/uL (4.0-11.0) Red Blood Count 3.70 x10^6/uL (3.50-5.40) Hemoglobin 11.4 g/dL (12.0-15.5) Hematocrit 34.1 % (36.0-47.0) Mean Corpuscular Volume 92 fL (79-100) Mean Corpuscular Hemoglobin 31 pg (25-35) Mean Corpuscular Hemoglobin Concent 33 g/dL (31-37) Red Cell Distribution Width 12.9 % (11.5-14.5) Platelet Count 249 x10^3/uL (140-400) Neutrophils (%) (Auto) 66 % (31-73) Lymphocytes (%) (Auto) 17 % (24-48) Monocytes (%) (Auto) 12 % (0-9) Eosinophils (%) (Auto) 4 % (0-3) Basophils (%) (Auto) 1 % (0-3) Neutrophils # (Auto) 3.2 x10^3uL (1.8-7.7) Lymphocytes # (Auto) 0.8 x10^3/uL (1.0-4.8) Monocytes # (Auto) 0.6 x10^3/uL (0.0-1.1) Eosinophils # (Auto) 0.2 x10^3/uL (0.0-0.7) Basophils # (Auto) 0.0 x10^3/uL (0.0-0.2) Sodium Level 136 mmol/L (136-145) Potassium Level 4.5 mmol/L (3.5-5.1) Chloride Level 100 mmol/L (98-107) Carbon Dioxide Level 30 mmol/L (21-32) Anion Gap 6 (6-14) Blood Urea Nitrogen 12 mg/dL (7-20) Creatinine 0.9 mg/dL (0.6-1.0) Estimated GFR (Cockcroft-Gault) 60.4 Glucose Level 93 mg/dL (70-99) Calcium Level 9.2 mg/dL (8.5-10.1) Review of Systems Review of Systems GI: denies nasuea/vomiting Heart: denies chest pain Assessment and Plan Assessmemt and Plan Assessment: 1. Persistent cough with abnormal CT chest with a tiny nodular infiltrate in the left upper lobe. Status post bronchoscopy growing multidrug resistant Pseudomonas in bronchoalveolar lavage. 2. History of a right pneumonectomy for lung cancer in 2002. 3. Possible mild chronic obstructive pulmonary disease. 4. GERD Plan: 1. Meropenem per ID 2. breathing treatments 3. home meds 4. PT/OT 5. frequent labs 6. appreciate subspecialty input Comment Review of Relevant I have reviewed the following items galen (where applicable) has been applied. Labs Laboratory Tests Test 06/17/18 04:30 06/18/18 03:40 White Blood Count 4.7 x10^3/uL (4.0-11.0) 4.9 x10^3/uL (4.0-11.0) Red Blood Count 3.89 x10^6/uL (3.50-5.40) 3.70 x10^6/uL (3.50-5.40) Hemoglobin 12.0 g/dL (12.0-15.5) 11.4 g/dL (12.0-15.5) Hematocrit 35.7 % (36.0-47.0) 34.1 % (36.0-47.0) Mean Corpuscular Volume 92 fL (79-100) 92 fL (79-100) Mean Corpuscular Hemoglobin 31 pg (25-35) 31 pg (25-35) Mean Corpuscular Hemoglobin Concent 34 g/dL (31-37) 33 g/dL (31-37) Red Cell Distribution Width 13.1 % (11.5-14.5) 12.9 % (11.5-14.5) Platelet Count 262 x10^3/uL (140-400) 249 x10^3/uL (140-400) Neutrophils (%) (Auto) 67 % (31-73) 66 % (31-73) Lymphocytes (%) (Auto) 16 % (24-48) 17 % (24-48) Monocytes (%) (Auto) 13 % (0-9) 12 % (0-9) Eosinophils (%) (Auto) 3 % (0-3) 4 % (0-3) Basophils (%) (Auto) 1 % (0-3) 1 % (0-3) Neutrophils # (Auto) 3.1 x10^3uL (1.8-7.7) 3.2 x10^3uL (1.8-7.7) Lymphocytes # (Auto) 0.7 x10^3/uL (1.0-4.8) 0.8 x10^3/uL (1.0-4.8) Monocytes # (Auto) 0.6 x10^3/uL (0.0-1.1) 0.6 x10^3/uL (0.0-1.1) Eosinophils # (Auto) 0.1 x10^3/uL (0.0-0.7) 0.2 x10^3/uL (0.0-0.7) Basophils # (Auto) 0.0 x10^3/uL (0.0-0.2) 0.0 x10^3/uL (0.0-0.2) Sodium Level 136 mmol/L (136-145) 136 mmol/L (136-145) Potassium Level 4.4 mmol/L (3.5-5.1) 4.5 mmol/L (3.5-5.1) Chloride Level 101 mmol/L (98-107) 100 mmol/L (98-107) Carbon Dioxide Level 30 mmol/L (21-32) 30 mmol/L (21-32) Anion Gap 5 (6-14) 6 (6-14) Blood Urea Nitrogen 15 mg/dL (7-20) 12 mg/dL (7-20) Creatinine 1.0 mg/dL (0.6-1.0) 0.9 mg/dL (0.6-1.0) Estimated GFR (Cockcroft-Gault) 53.5 60.4 Glucose Level 91 mg/dL (70-99) 93 mg/dL (70-99) Calcium Level 8.7 mg/dL (8.5-10.1) 9.2 mg/dL (8.5-10.1) Laboratory Tests Test 06/18/18 03:40 White Blood Count 4.9 x10^3/uL (4.0-11.0) Red Blood Count 3.70 x10^6/uL (3.50-5.40) Hemoglobin 11.4 g/dL (12.0-15.5) Hematocrit 34.1 % (36.0-47.0) Mean Corpuscular Volume 92 fL (79-100) Mean Corpuscular Hemoglobin 31 pg (25-35) Mean Corpuscular Hemoglobin Concent 33 g/dL (31-37) Red Cell Distribution Width 12.9 % (11.5-14.5) Platelet Count 249 x10^3/uL (140-400) Neutrophils (%) (Auto) 66 % (31-73) Lymphocytes (%) (Auto) 17 % (24-48) Monocytes (%) (Auto) 12 % (0-9) Eosinophils (%) (Auto) 4 % (0-3) Basophils (%) (Auto) 1 % (0-3) Neutrophils # (Auto) 3.2 x10^3uL (1.8-7.7) Lymphocytes # (Auto) 0.8 x10^3/uL (1.0-4.8) Monocytes # (Auto) 0.6 x10^3/uL (0.0-1.1) Eosinophils # (Auto) 0.2 x10^3/uL (0.0-0.7) Basophils # (Auto) 0.0 x10^3/uL (0.0-0.2) Sodium Level 136 mmol/L (136-145) Potassium Level 4.5 mmol/L (3.5-5.1) Chloride Level 100 mmol/L (98-107) Carbon Dioxide Level 30 mmol/L (21-32) Anion Gap 6 (6-14) Blood Urea Nitrogen 12 mg/dL (7-20) Creatinine 0.9 mg/dL (0.6-1.0) Estimated GFR (Cockcroft-Gault) 60.4 Glucose Level 93 mg/dL (70-99) Calcium Level 9.2 mg/dL (8.5-10.1) Medications Current Medications Ondansetron HCl (Zofran) 4 mg PRN Q6HRS PRN IV NAUSEA/VOMITING Last administered on 06/16/18at 06:36; Start 06/15/18 at 14:15 Acetaminophen/ Hydrocodone Bitart (Lortab 5/325) 1 tab PRN Q4HRS PRN PO MILD PAIN; Start 06/15/18 at 14:15 Acetaminophen (Tylenol) 650 mg PRN Q6HRS PRN PO Headaches, Temp > 101.5F; Start 06/15/18 at 14:15 Senna/Docusate Sodium (Senna Plus) 1 tab BID PO Last administered on 06/18/18at 09:13; Start 06/15/18 at 21:00 Magnesium Hydroxide (Milk Of Magnesia) 2,400 mg PRN Q12HR PRN PO CONSTIPATION; Start 06/15/18 at 14:15 Heparin Sodium (Porcine) (Heparin Sodium) 5,000 unit Q8HRS SQ Last administered on 06/18/18at 05:49; Start 06/15/18 at 15:00 Aspirin (Children'S Aspirin) 81 mg DAILY05 PO Last administered on 06/18/18at 05 :50; Start 06/16/18 at 05:00 Calcium Carbonate/ Glycine (Tums) 500 mg PRN Q2HR PRN PO reflux; Start at 14:15 Non-Formulary Medication 1 ea DAILY PO ; Start 06/16/18 at 09:00; Stop 06/16/18 at 09:00; Status DC Non-Formulary Medication (Albuterol Sulfate (Ventolin Hfa Inhaler)) 2 puff BID INH ; Start 06/15/18 at 21:00; Status UNV Non-Formulary Medication (Fluticasone Propionate (Flovent 110MCG Hfa)) 2 puff BID IH ; Start 06/15/18 at 21:00; Status UNV Montelukast Sodium (Singulair) 10 mg QHS PO Last administered on 06/17/18 22: 12; Start 06/15/18 at 21:00 Multivitamins (Thera M Plus) 1 tab DAILY PO Last administered on 06/18/18 09: 13; Start 06/16/18 at 09:00 Pantoprazole Sodium (Protonix) 40 mg HS PO Last administered on 06/17/18at 22:13 ; Start 06/15/18 at 23:00 Meropenem 500 mg/ Sodium Chloride 50 ml @ 100 mls/hr Q8HRS IV Last administered on 06/18/18 05:50; Start 06/15/18 at 15:00 Budesonide (Pulmicort) 0.5 mg RTBID NEB Last administered on 06/18/18 08:37; Start 06/15/18 at 20:00 Albuterol Sulfate (Ventolin Neb Soln) 2.5 mg RTBID NEB Last administered on at 09:34; Start 06/15/18 at 20:00; Stop 06/16/18 at 09:40; Status DC Non-Formulary Medication 1 ea DAILY PO ; Start 06/15/18 at 23:00; Stop 06/15/18 at 23:00; Status DC Non-Formulary Medication 1 ea HS PO Last administered on 06/17/18 22:10; Start 06/16/18 at 21:00 Albuterol/ Ipratropium (Duoneb) 3 ml RTQID NEB Last administered on 06/18/18 08:38; Start 06/16/18 at 12:00 Lactobacillus Rhamnosus (Culturelle) 1 cap BID PO Last administered on at 09:13; Start 06/16/18 at 21:00 Throat Lozenges (Cepacol Sore Throat Lozenge) 1 simran PRN Q2HRS PRN PO SORE THROAT Last administered on 06/17/18at 18:16; Start 06/17/18 at 17:45 Active Scripts Active Reported Omeprazole 10 Mg Capsule.dr 10 Mg PO DAILY Aspirin 81 Mg Tab.chew 81 Mg PO DAILY05 Multivitamins (Multivitamin) 1 Each Tablet 1 Tab PO DAILY Tums (Calcium Carbonate) 200 Mg Tab.chew 200 Mg PO Q4-6HRS PRN Femara (Letrozole) 2.5 Mg Tablet 1 Tab PO DAILY Singulair Tablet (Montelukast Sodium) 10 Mg Tablet 1 Tab PO DAILY Flovent 110MCG Hfa (Fluticasone Propionate) 12 Gm Aer.w.adap 2 Puff IH BID Ventolin Hfa Inhaler (Albuterol Sulfate) 18 Gm Hfa.aer.ad 2 Puff INH BID Vitals/I & O Vital Sign - Last 24 Hours 06/17/18 06/17/18 06/17/18 06/17/18 15:20 19:47 20:00 21:03 Temp 97.6 97.6 97.6 97.6 Pulse 99 93 Resp 18 16 B/P (MAP) 104/56 (72) 120/66 (84) Pulse Ox 95 91 95 O2 Delivery Room Air Room Air Room Air Room Air 06/17/18 06/18/18 06/18/18 06/18/18 23:16 03:36 07:00 08:00 Temp 97.7 97.7 97.8 97.7 97.7 97.8 Pulse 87 88 81 Resp 16 18 18 B/P (MAP) 103/61 (75) 128/77 (94) 131/82 (98) Pulse Ox 91 92 93 O2 Delivery Room Air Room Air Room Air Room Air 06/18/18 06/18/18 08:39 11:00 Temp 97.9 97.9 Pulse 96 Resp 18 B/P (MAP) 102/62 (75) Pulse Ox 96 93 O2 Delivery Room Air Room Air Intake and Output 06/17/18 06/17/18 06/18/18 15:01 23:01 07:01 Intake Total 360 ml 280 ml 400 ml Balance 360 ml 280 ml 400 ml ARLETH SUAREZ III DO Jun 18, 2018 11:41
--- NOTE | 2018-06-18 12:10 | PDOC ---
Infectious Disease Note Subjective Subjective Finally feeling better - feels abx are helping Denies F/C/S/N/V/D/SOA/CP Vital Sign Vital Signs Vital Signs Date Time Temp Pulse Resp B/P (MAP) Pulse Ox O2 Delivery O2 Flow Rate FiO2 06/18/18 11:00 97.9 96 18 102/62 (75) 93 Room Air 97.9 Physical Exam PHYSICAL EXAM GENERAL: Sitting in the bed, alert, smiling - looks better HEENT: Pupils equally round, normal conjunctivae. Oral cavity, pharynx pink and moist. NECK: Supple. LUNGS: Clear lung mcknight on the left. Nonlabored. on 02 HEART: S1, S2. ABDOMEN: Nondistended, soft and nontender with bowel sounds present. EXTREMITIES: No gross edema or cyanosis. SKIN: Warm without rash. NEUROLOGIC: Alert and oriented x 3. Labs Lab Laboratory Tests Test 06/18/18 03:40 White Blood Count 4.9 x10^3/uL (4.0-11.0) Red Blood Count 3.70 x10^6/uL (3.50-5.40) Hemoglobin 11.4 g/dL (12.0-15.5) Hematocrit 34.1 % (36.0-47.0) Mean Corpuscular Volume 92 fL (79-100) Mean Corpuscular Hemoglobin 31 pg (25-35) Mean Corpuscular Hemoglobin Concent 33 g/dL (31-37) Red Cell Distribution Width 12.9 % (11.5-14.5) Platelet Count 249 x10^3/uL (140-400) Neutrophils (%) (Auto) 66 % (31-73) Lymphocytes (%) (Auto) 17 % (24-48) Monocytes (%) (Auto) 12 % (0-9) Eosinophils (%) (Auto) 4 % (0-3) Basophils (%) (Auto) 1 % (0-3) Neutrophils # (Auto) 3.2 x10^3uL (1.8-7.7) Lymphocytes # (Auto) 0.8 x10^3/uL (1.0-4.8) Monocytes # (Auto) 0.6 x10^3/uL (0.0-1.1) Eosinophils # (Auto) 0.2 x10^3/uL (0.0-0.7) Basophils # (Auto) 0.0 x10^3/uL (0.0-0.2) Sodium Level 136 mmol/L (136-145) Potassium Level 4.5 mmol/L (3.5-5.1) Chloride Level 100 mmol/L (98-107) Carbon Dioxide Level 30 mmol/L (21-32) Anion Gap 6 (6-14) Blood Urea Nitrogen 12 mg/dL (7-20) Creatinine 0.9 mg/dL (0.6-1.0) Estimated GFR (Cockcroft-Gault) 60.4 Glucose Level 93 mg/dL (70-99) Calcium Level 9.2 mg/dL (8.5-10.1) Objective Assessment MDR Pseudomonas respiratory infection s/p BAL on 06/07/2018. History of a right pneumonectomy for lung cancer in 2002. Abx allergies - PCN - swollen lip (unsure if ever had cephalosporin or amox) and Levaquin allergy tendon complications GERD Plan Plan of Care Continue the meropenem as there is no oral option available [facility] Social Service eval will evaluate duration depending on response Monitor labs/temp Supportive care D/w nursing TIFFANIE OCONNOR MD Jun 18, 2018 12:10
--- NOTE | 2018-06-18 14:59 | NUR ---
MURPHY consulted for OP IV abx. MURPHY phoned and faxed referral to [facility]. Pietro from [employer] will notify MURPHY with pt's benefits. MURPHY will continue to follow.
[2018-06-18 15:00] VITALS: BP 116/67
--- NOTE | 2018-06-18 16:56 | NUR ---
Pt will have to pay 312.78/week for IV abx and supply. Discussed with pt and in room. Pt reported she was not sure that she was the one that will administer medication at home. SW extensively discussed about home infusion set up and informed them a nurse can do a teaching with them to make sure they are comfortable to do medication at home. Pt requested about coming to [facility] outpatient but SW informed her Meropenem is usually done twice or three times a day which might not be feasible. Pt and to speak with Physician tomorrow about their concern. SW will continue to follow.
--- NOTE | 2018-06-18 18:18 | PDOC ---
PULMONARY PROGRESS NOTES Subjective NOT MORE SOA Vitals Vital Signs Date Time Temp Pulse Resp B/P (MAP) Pulse Ox O2 Delivery O2 Flow Rate FiO2 06/18/18 15:00 98.2 85 16 116/67 (83) 96 Room Air 98.2 ROS: No Nausea, No Chest Pain, No Abdominal Pain, No Increase Cough General: Alert Lungs: Other (r deminished bs) Cardiovascular: S1, S2 Abdomen: Soft, Non-tender Neuro Exam: Alert, Oriented Extremities: No Edema Labs Laboratory Tests Test 06/17/18 04:30 06/18/18 03:40 White Blood Count 4.7 x10^3/uL (4.0-11.0) 4.9 x10^3/uL (4.0-11.0) Red Blood Count 3.89 x10^6/uL (3.50-5.40) 3.70 x10^6/uL (3.50-5.40) Hemoglobin 12.0 g/dL (12.0-15.5) 11.4 g/dL (12.0-15.5) Hematocrit 35.7 % (36.0-47.0) 34.1 % (36.0-47.0) Mean Corpuscular Volume 92 fL (79-100) 92 fL (79-100) Mean Corpuscular Hemoglobin 31 pg (25-35) 31 pg (25-35) Mean Corpuscular Hemoglobin Concent 34 g/dL (31-37) 33 g/dL (31-37) Red Cell Distribution Width 13.1 % (11.5-14.5) 12.9 % (11.5-14.5) Platelet Count 262 x10^3/uL (140-400) 249 x10^3/uL (140-400) Neutrophils (%) (Auto) 67 % (31-73) 66 % (31-73) Lymphocytes (%) (Auto) 16 % (24-48) 17 % (24-48) Monocytes (%) (Auto) 13 % (0-9) 12 % (0-9) Eosinophils (%) (Auto) 3 % (0-3) 4 % (0-3) Basophils (%) (Auto) 1 % (0-3) 1 % (0-3) Neutrophils # (Auto) 3.1 x10^3uL (1.8-7.7) 3.2 x10^3uL (1.8-7.7) Lymphocytes # (Auto) 0.7 x10^3/uL (1.0-4.8) 0.8 x10^3/uL (1.0-4.8) Monocytes # (Auto) 0.6 x10^3/uL (0.0-1.1) 0.6 x10^3/uL (0.0-1.1) Eosinophils # (Auto) 0.1 x10^3/uL (0.0-0.7) 0.2 x10^3/uL (0.0-0.7) Basophils # (Auto) 0.0 x10^3/uL (0.0-0.2) 0.0 x10^3/uL (0.0-0.2) Sodium Level 136 mmol/L (136-145) 136 mmol/L (136-145) Potassium Level 4.4 mmol/L (3.5-5.1) 4.5 mmol/L (3.5-5.1) Chloride Level 101 mmol/L (98-107) 100 mmol/L (98-107) Carbon Dioxide Level 30 mmol/L (21-32) 30 mmol/L (21-32) Anion Gap 5 (6-14) 6 (6-14) Blood Urea Nitrogen 15 mg/dL (7-20) 12 mg/dL (7-20) Creatinine 1.0 mg/dL (0.6-1.0) 0.9 mg/dL (0.6-1.0) Estimated GFR (Cockcroft-Gault) 53.5 60.4 Glucose Level 91 mg/dL (70-99) 93 mg/dL (70-99) Calcium Level 8.7 mg/dL (8.5-10.1) 9.2 mg/dL (8.5-10.1) Laboratory Tests Test 06/18/18 03:40 White Blood Count 4.9 x10^3/uL (4.0-11.0) Red Blood Count 3.70 x10^6/uL (3.50-5.40) Hemoglobin 11.4 g/dL (12.0-15.5) Hematocrit 34.1 % (36.0-47.0) Mean Corpuscular Volume 92 fL (79-100) Mean Corpuscular Hemoglobin 31 pg (25-35) Mean Corpuscular Hemoglobin Concent 33 g/dL (31-37) Red Cell Distribution Width 12.9 % (11.5-14.5) Platelet Count 249 x10^3/uL (140-400) Neutrophils (%) (Auto) 66 % (31-73) Lymphocytes (%) (Auto) 17 % (24-48) Monocytes (%) (Auto) 12 % (0-9) Eosinophils (%) (Auto) 4 % (0-3) Basophils (%) (Auto) 1 % (0-3) Neutrophils # (Auto) 3.2 x10^3uL (1.8-7.7) Lymphocytes # (Auto) 0.8 x10^3/uL (1.0-4.8) Monocytes # (Auto) 0.6 x10^3/uL (0.0-1.1) Eosinophils # (Auto) 0.2 x10^3/uL (0.0-0.7) Basophils # (Auto) 0.0 x10^3/uL (0.0-0.2) Sodium Level 136 mmol/L (136-145) Potassium Level 4.5 mmol/L (3.5-5.1) Chloride Level 100 mmol/L (98-107) Carbon Dioxide Level 30 mmol/L (21-32) Anion Gap 6 (6-14) Blood Urea Nitrogen 12 mg/dL (7-20) Creatinine 0.9 mg/dL (0.6-1.0) Estimated GFR (Cockcroft-Gault) 60.4 Glucose Level 93 mg/dL (70-99) Calcium Level 9.2 mg/dL (8.5-10.1) Medications Active Scripts Medications Dose Route/Sig Max Daily Dose Days Date Category Omeprazole 10 Mg Capsule.dr 10 Mg PO DAILY 06/07/18 Reported Aspirin 81 Mg Tab.chew 81 Mg PO DAILY05 06/07/18 Reported Multivitamins (Multivitamin) 1 Each Tablet 1 Tab PO DAILY 06/07/18 Reported Tums (Calcium Carbonate) 200 Mg Tab.chew 200 Mg PO Q4-6HRS PRN 06/07/18 Reported Femara (Letrozole) 2.5 Mg Tablet 1 Tab PO DAILY 06/07/18 Reported Singulair Tablet (Montelukast Sodium) 10 Mg Tablet 1 Tab PO DAILY 06/07/18 Reported Flovent 110MCG Hfa (Fluticasone Propionate) 12 Gm Aer.w.adap 2 Puff IH BID 06/07/18 Reported Ventolin Hfa Inhaler (Albuterol Sulfate) 18 Gm Hfa.aer.ad 2 Puff INH BID 06/07/[address] 1. Status post right pneumonectomy. 2. Mild lingular nodularity seen on 03/22/2018 has largely resolved and was probably inflammatory in nature. 3. Mild scattered parenchymal scarring on the left 4. Cholelithiasis. Impression . IMPRESSION: 1. Persistent cough with abnormal CT chest with a tiny nodular infiltrate in the left upper lobe. Status post bronchoscopy growing multidrug resistant Pseudomonas in bronchoalveolar lavage. 2. History of a right pneumonectomy for lung cancer in 2002. 3. Possible mild chronic obstructive pulmonary disease. Plan . ANTI BX PER ID SS TO EVALUATE OPTIONS FOR D/C PHUC SALAZAR MD Jun 18, 2018 18:18
[2018-06-18 19:05] VITALS: BP 123/50
[2018-06-18] MEDS: LETROZOLE 2.5MG TAB PO SCH (21:00)
[2018-06-18] MEDS: PANTOPRAZOLE 40 MG TABLET.DR. PO SCH (21:00)
[2018-06-18] MEDS: MONTELUKAST SODIUM 10 MG TABLET. PO SCH (21:00)
[2018-06-18 23:33] VITALS: BP 108/52
[2018-06-19 03:20] VITALS: BP 117/69
[2018-06-19 03:48] LABS: BASO % 1 % (0-3); EOS # 0.2 x10^3/uL (0.0-0.7); EOS % 3 % (0-3); HEMATOCRIT 34.7 % (36.0-47.0); HEMOGLOBIN 11.7 g/dL (12.0-15.5); LYMPH # 0.8 x10^3/uL (1.0-4.8); LYMPH % 16 % (24-48); MEAN CORPUSCULAR HEMOGLOBIN 31 pg (25-35); MEAN CORPUSCULAR HGB CONC 34 g/dL (31-37); MEAN CORPUSCULAR VOLUME 92 fL (79-100); MONO # 0.6 x10^3/uL (0.0-1.1); MONO % 12 % (0-9); NEUT # 3.4 x10^3uL (1.8-7.7); NEUT % 68 % (31-73); PLATELET COUNT 251 x10^3/uL (140-400); RED BLOOD COUNT 3.77 x10^6/uL (3.50-5.40); RED CELL DISTRIBUTION WIDTH 13.1 % (11.5-14.5); WHITE BLOOD COUNT 4.9 x10^3/uL (4.0-11.0)
[2018-06-19 04:03] LABS: CALCIUM 9.1 mg/dL (8.5-10.1); CREATININE 0.9 mg/dL (0.6-1.0); GFR 60.4; POTASSIUM 4.2 mmol/L (3.5-5.1)
[2018-06-19] MEDS: ASPIRIN CHEWABLE 81 MG TABLET. PO SCH (05:49)
[2018-06-19] MEDS: MEROPENEM 500 MG in IV NORMAL SALINE 50ML 50 ML IV SCH (05:50)
[2018-06-19] MEDS: HEPARIN for SUB-Q USE 5,000 UNIT/ML VIAL. SQ SCH ×3 (06:04→21:06)
[2018-06-19 07:00] VITALS: BP 125/67
--- NOTE | 2018-06-19 08:00 | PDOC ---
Infectious Disease Note Subjective Subjective C/o LE swelling today and dry throat. Cough stable ? getting a "cold" as her had one Denies F/C/S/N/V/D/SOA/CP Vital Sign Vital Signs Vital Signs Date Time Temp Pulse Resp B/P (MAP) Pulse Ox O2 Delivery O2 Flow Rate FiO2 06/19/18 03:20 98.0 96 16 117/69 (85) 93 Room Air 98.0 Physical Exam PHYSICAL EXAM GENERAL: Sitting in the bed, alert, smiling - looks ok HEENT: Pupils equally round, normal conjunctivae. Oral cavity, pharynx pink and dry. NECK: Supple. LUNGS: Clear lung mcknight on the left. Nonlabored. on 02 HEART: S1, S2. ABDOMEN: Nondistended, soft and nontender with bowel sounds present. EXTREMITIES: Trace to 1 plus edema or cyanosis. SKIN: Warm without rash. NEUROLOGIC: Alert and oriented x 3. Labs Lab Laboratory Tests Test 06/19/18 03:00 White Blood Count 4.9 x10^3/uL (4.0-11.0) Red Blood Count 3.77 x10^6/uL (3.50-5.40) Hemoglobin 11.7 g/dL (12.0-15.5) Hematocrit 34.7 % (36.0-47.0) Mean Corpuscular Volume 92 fL (79-100) Mean Corpuscular Hemoglobin 31 pg (25-35) Mean Corpuscular Hemoglobin Concent 34 g/dL (31-37) Red Cell Distribution Width 13.1 % (11.5-14.5) Platelet Count 251 x10^3/uL (140-400) Neutrophils (%) (Auto) 68 % (31-73) Lymphocytes (%) (Auto) 16 % (24-48) Monocytes (%) (Auto) 12 % (0-9) Eosinophils (%) (Auto) 3 % (0-3) Basophils (%) (Auto) 1 % (0-3) Neutrophils # (Auto) 3.4 x10^3uL (1.8-7.7) Lymphocytes # (Auto) 0.8 x10^3/uL (1.0-4.8) Monocytes # (Auto) 0.6 x10^3/uL (0.0-1.1) Eosinophils # (Auto) 0.2 x10^3/uL (0.0-0.7) Basophils # (Auto) 0.0 x10^3/uL (0.0-0.2) Sodium Level 136 mmol/L (136-145) Potassium Level 4.2 mmol/L (3.5-5.1) Chloride Level 99 mmol/L (98-107) Carbon Dioxide Level 32 mmol/L (21-32) Anion Gap 5 (6-14) Blood Urea Nitrogen 13 mg/dL (7-20) Creatinine 0.9 mg/dL (0.6-1.0) Estimated GFR (Cockcroft-Gault) 60.4 Glucose Level 92 mg/dL (70-99) Calcium Level 9.1 mg/dL (8.5-10.1) Objective Assessment MDR Pseudomonas respiratory infection s/p BAL on 06/07/2018. History of a right pneumonectomy for lung cancer in 2002. Abx allergies - PCN - swollen lip (unsure if ever had cephalosporin or amox) and Levaquin allergy tendon complications GERD Plan Plan of Care Continue the meropenem but 1 gm q 12 Was informed Midline is not available - has h/o bilat breast surgery - so no PICC. She only needs the IV for up to a week so prefer not to put a tunneled chest cath in place. See if IJ can be placed by IR Add Nystatin for ? early thrush. monitor sore throat Edema per primary Social Service eval will evaluate duration depending on response Monitor labs/temp Supportive care D/w nursing TIFFANIE OCONNOR MD Jun 19, 2018 08:00
[2018-06-19] MEDS: IPRATRPIUM/ALBUTEROL 0.5/2.5MG 3 ML NEBU. NEB SCH ×4 (08:01→20:03)
[2018-06-19] MEDS: BUDESONIDE 0.5 MG/2 ML NEBU. NEB SCH ×2 (08:01→20:03)
[2018-06-19] MEDS: MEROPENEM 1 GM in IV NORMAL SALINE 100ML 100 ML IV SCH ×2 (08:16→20:57)
[2018-06-19] MEDS: LACTOBACILLUS RHAMNOSUS GG 1 CAPSULE. PO SCH ×2 (08:47→20:56)
[2018-06-19] MEDS: SENNOSIDES/DOCUSATE 8.6/50MG TABLET. PO SCH ×2 (08:47→21:00)
[2018-06-19] MEDS: MULTIVITAMIN with MINERAL TABLET. PO SCH (08:47)
--- NOTE | 2018-06-19 08:53 | PDOC ---
PULMONARY PROGRESS NOTES Subjective NOT MORE SOA Vitals Vital Signs Date Time Temp Pulse Resp B/P (MAP) Pulse Ox O2 Delivery O2 Flow Rate FiO2 06/19/18 08:01 96 Room Air 06/19/18 07:00 97.8 70 18 125/67 (86) 97.8 ROS: No Nausea, No Chest Pain, No Abdominal Pain, No Increase Cough General: Alert Lungs: Other (r deminished bs) Cardiovascular: S1, S2 Abdomen: Soft, Non-tender Neuro Exam: Alert, Oriented Extremities: No Edema Labs Laboratory Tests Test 06/18/18 03:40 06/19/18 03:00 White Blood Count 4.9 x10^3/uL (4.0-11.0) 4.9 x10^3/uL (4.0-11.0) Red Blood Count 3.70 x10^6/uL (3.50-5.40) 3.77 x10^6/uL (3.50-5.40) Hemoglobin 11.4 g/dL (12.0-15.5) 11.7 g/dL (12.0-15.5) Hematocrit 34.1 % (36.0-47.0) 34.7 % (36.0-47.0) Mean Corpuscular Volume 92 fL (79-100) 92 fL (79-100) Mean Corpuscular Hemoglobin 31 pg (25-35) 31 pg (25-35) Mean Corpuscular Hemoglobin Concent 33 g/dL (31-37) 34 g/dL (31-37) Red Cell Distribution Width 12.9 % (11.5-14.5) 13.1 % (11.5-14.5) Platelet Count 249 x10^3/uL (140-400) 251 x10^3/uL (140-400) Neutrophils (%) (Auto) 66 % (31-73) 68 % (31-73) Lymphocytes (%) (Auto) 17 % (24-48) 16 % (24-48) Monocytes (%) (Auto) 12 % (0-9) 12 % (0-9) Eosinophils (%) (Auto) 4 % (0-3) 3 % (0-3) Basophils (%) (Auto) 1 % (0-3) 1 % (0-3) Neutrophils # (Auto) 3.2 x10^3uL (1.8-7.7) 3.4 x10^3uL (1.8-7.7) Lymphocytes # (Auto) 0.8 x10^3/uL (1.0-4.8) 0.8 x10^3/uL (1.0-4.8) Monocytes # (Auto) 0.6 x10^3/uL (0.0-1.1) 0.6 x10^3/uL (0.0-1.1) Eosinophils # (Auto) 0.2 x10^3/uL (0.0-0.7) 0.2 x10^3/uL (0.0-0.7) Basophils # (Auto) 0.0 x10^3/uL (0.0-0.2) 0.0 x10^3/uL (0.0-0.2) Sodium Level 136 mmol/L (136-145) 136 mmol/L (136-145) Potassium Level 4.5 mmol/L (3.5-5.1) 4.2 mmol/L (3.5-5.1) Chloride Level 100 mmol/L (98-107) 99 mmol/L (98-107) Carbon Dioxide Level 30 mmol/L (21-32) 32 mmol/L (21-32) Anion Gap 6 (6-14) 5 (6-14) Blood Urea Nitrogen 12 mg/dL (7-20) 13 mg/dL (7-20) Creatinine 0.9 mg/dL (0.6-1.0) 0.9 mg/dL (0.6-1.0) Estimated GFR (Cockcroft-Gault) 60.4 60.4 Glucose Level 93 mg/dL (70-99) 92 mg/dL (70-99) Calcium Level 9.2 mg/dL (8.5-10.1) 9.1 mg/dL (8.5-10.1) Laboratory Tests Test 06/19/18 03:00 White Blood Count 4.9 x10^3/uL (4.0-11.0) Red Blood Count 3.77 x10^6/uL (3.50-5.40) Hemoglobin 11.7 g/dL (12.0-15.5) Hematocrit 34.7 % (36.0-47.0) Mean Corpuscular Volume 92 fL (79-100) Mean Corpuscular Hemoglobin 31 pg (25-35) Mean Corpuscular Hemoglobin Concent 34 g/dL (31-37) Red Cell Distribution Width 13.1 % (11.5-14.5) Platelet Count 251 x10^3/uL (140-400) Neutrophils (%) (Auto) 68 % (31-73) Lymphocytes (%) (Auto) 16 % (24-48) Monocytes (%) (Auto) 12 % (0-9) Eosinophils (%) (Auto) 3 % (0-3) Basophils (%) (Auto) 1 % (0-3) Neutrophils # (Auto) 3.4 x10^3uL (1.8-7.7) Lymphocytes # (Auto) 0.8 x10^3/uL (1.0-4.8) Monocytes # (Auto) 0.6 x10^3/uL (0.0-1.1) Eosinophils # (Auto) 0.2 x10^3/uL (0.0-0.7) Basophils # (Auto) 0.0 x10^3/uL (0.0-0.2) Sodium Level 136 mmol/L (136-145) Potassium Level 4.2 mmol/L (3.5-5.1) Chloride Level 99 mmol/L (98-107) Carbon Dioxide Level 32 mmol/L (21-32) Anion Gap 5 (6-14) Blood Urea Nitrogen 13 mg/dL (7-20) Creatinine 0.9 mg/dL (0.6-1.0) Estimated GFR (Cockcroft-Gault) 60.4 Glucose Level 92 mg/dL (70-99) Calcium Level 9.1 mg/dL (8.5-10.1) Medications Active Scripts Medications Dose Route/Sig Max Daily Dose Days Date Category Omeprazole 10 Mg Capsule.dr 10 Mg PO DAILY 06/07/18 Reported Aspirin 81 Mg Tab.chew 81 Mg PO DAILY05 06/07/18 Reported Multivitamins (Multivitamin) 1 Each Tablet 1 Tab PO DAILY 06/07/18 Reported Tums (Calcium Carbonate) 200 Mg Tab.chew 200 Mg PO Q4-6HRS PRN 06/07/18 Reported Femara (Letrozole) 2.5 Mg Tablet 1 Tab PO DAILY 06/07/18 Reported Singulair Tablet (Montelukast Sodium) 10 Mg Tablet 1 Tab PO DAILY 06/07/18 Reported Flovent 110MCG Hfa (Fluticasone Propionate) 12 Gm Aer.w.adap 2 Puff IH BID 06/07/18 Reported Ventolin Hfa Inhaler (Albuterol Sulfate) 18 Gm Hfa.aer.ad 2 Puff INH BID 06/07/[address] 1. Status post right pneumonectomy. 2. Mild lingular nodularity seen on 03/22/2018 has largely resolved and was probably inflammatory in nature. 3. Mild scattered parenchymal scarring on the left 4. Cholelithiasis. Impression . IMPRESSION: 1. Persistent cough with abnormal CT chest with a tiny nodular infiltrate in the left upper lobe. Status post bronchoscopy growing multidrug resistant Pseudomonas in bronchoalveolar lavage. 2. History of a right pneumonectomy for lung cancer in 2002. 3. Possible mild chronic obstructive pulmonary disease. Plan . ANTI BX PER ID d/c in am follow up with me in 4-6 weeks PHUC SALAZAR MD Jun 19, 2018 08:53
[2018-06-19] MEDS: NYSTATIN 100,000 UNITS/ML 5 ML ORAL.SUSP. SWSW SCH ×4 (09:00→21:00)
--- NOTE | 2018-06-19 09:41 | PDOC ---
PROGRESS NOTES Chief Complaint Chief Complaint Positive Bronchoscopy culture (pseudomonas) History of Present Illness History of Present Illness Patient seen and examined this morning. Discussed with her that we will need to wait for abx treatment to complete prior to discharge b/c it is IV only. Vitals Vitals Vital Signs Date Time Temp Pulse Resp B/P (MAP) Pulse Ox O2 Delivery O2 Flow Rate FiO2 06/19/18 08:01 96 Room Air 06/19/18 07:00 97.8 70 18 125/67 (86) 97.8 Physical Exam Physical Exam GENERAL: Sitting in the bed, alert, smiling - looks ok HEENT: Pupils equally round, normal conjunctivae. Oral cavity, pharynx pink and dry. NECK: Supple. LUNGS: Clear lung mcknight on the left. Nonlabored. on 02 HEART: S1, S2. ABDOMEN: Nondistended, soft and nontender with bowel sounds present. EXTREMITIES: Trace to 1 plus edema or cyanosis. SKIN: Warm without rash. NEUROLOGIC: Alert and oriented x 3. General: Alert, Oriented X3, Cooperative, No acute distress Heart: Regular rate, Normal S1, Normal S2 Lungs: Other (r deminished bs) Abdomen: Normal bowel sounds, Soft, No tenderness, No hepatosplenomegaly, No masses Extremities: No clubbing, No cyanosis, No edema, Normal pulses, No tenderness/ swelling Skin: No rashes, No breakdown, No significant lesion Labs LABS Laboratory Tests Test 06/19/18 03:00 White Blood Count 4.9 x10^3/uL (4.0-11.0) Red Blood Count 3.77 x10^6/uL (3.50-5.40) Hemoglobin 11.7 g/dL (12.0-15.5) Hematocrit 34.7 % (36.0-47.0) Mean Corpuscular Volume 92 fL (79-100) Mean Corpuscular Hemoglobin 31 pg (25-35) Mean Corpuscular Hemoglobin Concent 34 g/dL (31-37) Red Cell Distribution Width 13.1 % (11.5-14.5) Platelet Count 251 x10^3/uL (140-400) Neutrophils (%) (Auto) 68 % (31-73) Lymphocytes (%) (Auto) 16 % (24-48) Monocytes (%) (Auto) 12 % (0-9) Eosinophils (%) (Auto) 3 % (0-3) Basophils (%) (Auto) 1 % (0-3) Neutrophils # (Auto) 3.4 x10^3uL (1.8-7.7) Lymphocytes # (Auto) 0.8 x10^3/uL (1.0-4.8) Monocytes # (Auto) 0.6 x10^3/uL (0.0-1.1) Eosinophils # (Auto) 0.2 x10^3/uL (0.0-0.7) Basophils # (Auto) 0.0 x10^3/uL (0.0-0.2) Sodium Level 136 mmol/L (136-145) Potassium Level 4.2 mmol/L (3.5-5.1) Chloride Level 99 mmol/L (98-107) Carbon Dioxide Level 32 mmol/L (21-32) Anion Gap 5 (6-14) Blood Urea Nitrogen 13 mg/dL (7-20) Creatinine 0.9 mg/dL (0.6-1.0) Estimated GFR (Cockcroft-Gault) 60.4 Glucose Level 92 mg/dL (70-99) Calcium Level 9.1 mg/dL (8.5-10.1) Review of Systems Review of Systems GI: denies nausea/vomiting Lung: some soa/coughing Assessment and Plan Assessmemt and Plan Assessment: 1. hx of lung cancer and left lung removed 2. positive pseudomonas bronchoscopy Plan: 1. Breathing treatments 2. Abx treatment per ID 3. encouraged PO intake 4. home meds 5. D/C when ok with subspecialist Comment Review of Relevant I have reviewed the following items galen (where applicable) has been applied. Labs Laboratory Tests Test 06/18/18 03:40 06/19/18 03:00 White Blood Count 4.9 x10^3/uL (4.0-11.0) 4.9 x10^3/uL (4.0-11.0) Red Blood Count 3.70 x10^6/uL (3.50-5.40) 3.77 x10^6/uL (3.50-5.40) Hemoglobin 11.4 g/dL (12.0-15.5) 11.7 g/dL (12.0-15.5) Hematocrit 34.1 % (36.0-47.0) 34.7 % (36.0-47.0) Mean Corpuscular Volume 92 fL (79-100) 92 fL (79-100) Mean Corpuscular Hemoglobin 31 pg (25-35) 31 pg (25-35) Mean Corpuscular Hemoglobin Concent 33 g/dL (31-37) 34 g/dL (31-37) Red Cell Distribution Width 12.9 % (11.5-14.5) 13.1 % (11.5-14.5) Platelet Count 249 x10^3/uL (140-400) 251 x10^3/uL (140-400) Neutrophils (%) (Auto) 66 % (31-73) 68 % (31-73) Lymphocytes (%) (Auto) 17 % (24-48) 16 % (24-48) Monocytes (%) (Auto) 12 % (0-9) 12 % (0-9) Eosinophils (%) (Auto) 4 % (0-3) 3 % (0-3) Basophils (%) (Auto) 1 % (0-3) 1 % (0-3) Neutrophils # (Auto) 3.2 x10^3uL (1.8-7.7) 3.4 x10^3uL (1.8-7.7) Lymphocytes # (Auto) 0.8 x10^3/uL (1.0-4.8) 0.8 x10^3/uL (1.0-4.8) Monocytes # (Auto) 0.6 x10^3/uL (0.0-1.1) 0.6 x10^3/uL (0.0-1.1) Eosinophils # (Auto) 0.2 x10^3/uL (0.0-0.7) 0.2 x10^3/uL (0.0-0.7) Basophils # (Auto) 0.0 x10^3/uL (0.0-0.2) 0.0 x10^3/uL (0.0-0.2) Sodium Level 136 mmol/L (136-145) 136 mmol/L (136-145) Potassium Level 4.5 mmol/L (3.5-5.1) 4.2 mmol/L (3.5-5.1) Chloride Level 100 mmol/L (98-107) 99 mmol/L (98-107) Carbon Dioxide Level 30 mmol/L (21-32) 32 mmol/L (21-32) Anion Gap 6 (6-14) 5 (6-14) Blood Urea Nitrogen 12 mg/dL (7-20) 13 mg/dL (7-20) Creatinine 0.9 mg/dL (0.6-1.0) 0.9 mg/dL (0.6-1.0) Estimated GFR (Cockcroft-Gault) 60.4 60.4 Glucose Level 93 mg/dL (70-99) 92 mg/dL (70-99) Calcium Level 9.2 mg/dL (8.5-10.1) 9.1 mg/dL (8.5-10.1) Laboratory Tests Test 06/19/18 03:00 White Blood Count 4.9 x10^3/uL (4.0-11.0) Red Blood Count 3.77 x10^6/uL (3.50-5.40) Hemoglobin 11.7 g/dL (12.0-15.5) Hematocrit 34.7 % (36.0-47.0) Mean Corpuscular Volume 92 fL (79-100) Mean Corpuscular Hemoglobin 31 pg (25-35) Mean Corpuscular Hemoglobin Concent 34 g/dL (31-37) Red Cell Distribution Width 13.1 % (11.5-14.5) Platelet Count 251 x10^3/uL (140-400) Neutrophils (%) (Auto) 68 % (31-73) Lymphocytes (%) (Auto) 16 % (24-48) Monocytes (%) (Auto) 12 % (0-9) Eosinophils (%) (Auto) 3 % (0-3) Basophils (%) (Auto) 1 % (0-3) Neutrophils # (Auto) 3.4 x10^3uL (1.8-7.7) Lymphocytes # (Auto) 0.8 x10^3/uL (1.0-4.8) Monocytes # (Auto) 0.6 x10^3/uL (0.0-1.1) Eosinophils # (Auto) 0.2 x10^3/uL (0.0-0.7) Basophils # (Auto) 0.0 x10^3/uL (0.0-0.2) Sodium Level 136 mmol/L (136-145) Potassium Level 4.2 mmol/L (3.5-5.1) Chloride Level 99 mmol/L (98-107) Carbon Dioxide Level 32 mmol/L (21-32) Anion Gap 5 (6-14) Blood Urea Nitrogen 13 mg/dL (7-20) Creatinine 0.9 mg/dL (0.6-1.0) Estimated GFR (Cockcroft-Gault) 60.4 Glucose Level 92 mg/dL (70-99) Calcium Level 9.1 mg/dL (8.5-10.1) Medications Current Medications Ondansetron HCl (Zofran) 4 mg PRN Q6HRS PRN IV NAUSEA/VOMITING Last administered on 06/16/18at 06:36; Start 06/15/18 at 14:15 Acetaminophen/ Hydrocodone Bitart (Lortab 5/325) 1 tab PRN Q4HRS PRN PO MILD PAIN; Start 06/15/18 at 14:15 Acetaminophen (Tylenol) 650 mg PRN Q6HRS PRN PO Headaches, Temp > 101.5F; Start 06/15/18 at 14:15 Senna/Docusate Sodium (Senna Plus) 1 tab BID PO Last administered on 06/19/18at 08:47; Start 06/15/18 at 21:00 Magnesium Hydroxide (Milk Of Magnesia) 2,400 mg PRN Q12HR PRN PO CONSTIPATION; Start 06/15/18 at 14:15 Heparin Sodium (Porcine) (Heparin Sodium) 5,000 unit Q8HRS SQ Last administered on 06/19/18at 06:04; Start 06/15/18 at 15:00 Aspirin (Children'S Aspirin) 81 mg DAILY05 PO Last administered on 06/19/18at 05 :49; Start 06/16/18 at 05:00 Calcium Carbonate/ Glycine (Tums) 500 mg PRN Q2HR PRN PO reflux; Start at 14:15 Non-Formulary Medication 1 ea DAILY PO ; Start 06/16/18 at 09:00; Stop 06/16/18 at 09:00; Status DC Non-Formulary Medication (Albuterol Sulfate (Ventolin Hfa Inhaler)) 2 puff BID INH ; Start 06/15/18 at 21:00; Status UNV Non-Formulary Medication (Fluticasone Propionate (Flovent 110MCG Hfa)) 2 puff BID IH ; Start 06/15/18 at 21:00; Status UNV Montelukast Sodium (Singulair) 10 mg QHS PO Last administered on 06/18/18 21: 00; Start 06/15/18 at 21:00 Multivitamins (Thera M Plus) 1 tab DAILY PO Last administered on 06/19/18 08: 47; Start 06/16/18 at 09:00 Pantoprazole Sodium (Protonix) 40 mg HS PO Last administered on 06/18/18 21:00 ; Start 06/15/18 at 23:00 Meropenem 500 mg/ Sodium Chloride 50 ml @ 100 mls/hr Q8HRS IV Last administered on 06/19/18 05:50; Start 06/15/18 at 15:00; Stop 06/19/18 at 08:00 ; Status DC Budesonide (Pulmicort) 0.5 mg RTBID NEB Last administered on 06/19/18 08:01; Start 06/15/18 at 20:00 Albuterol Sulfate (Ventolin Neb Soln) 2.5 mg RTBID NEB Last administered on 09:34; Start 06/15/18 at 20:00; Stop 06/16/18 at 09:40; Status DC Non-Formulary Medication 1 ea DAILY PO ; Start 06/15/18 at 23:00; Stop 06/15/18 at 23:00; Status DC Non-Formulary Medication 1 ea HS PO Last administered on 06/18/18at 21:00; Start 06/16/18 at 21:00 Albuterol/ Ipratropium (Duoneb) 3 ml RTQID NEB Last administered on 06/19/18 08:01; Start 06/16/18 at 12:00 Lactobacillus Rhamnosus (Culturelle) 1 cap BID PO Last administered on 08:47; Start 06/16/18 at 21:00 Throat Lozenges (Cepacol Sore Throat Lozenge) 1 simran PRN Q2HRS PRN PO SORE THROAT Last administered on 06/17/18at 18:16; Start 06/17/18 at 17:45 Meropenem 1 gm/ Sodium Chloride 100 ml @ 200 mls/hr Q12HR IV ; Start 06/19/18 at 09:00 Nystatin (Nystatin Oral Susp) 5 ml [id number] [id number] ; Start 06/19/18 at 09:00 Active Scripts Active Reported Omeprazole 10 Mg Capsule.dr 10 Mg PO DAILY Aspirin 81 Mg Tab.chew 81 Mg PO DAILY05 Multivitamins (Multivitamin) 1 Each Tablet 1 Tab PO DAILY Tums (Calcium Carbonate) 200 Mg Tab.chew 200 Mg PO Q4-6HRS PRN Femara (Letrozole) 2.5 Mg Tablet 1 Tab PO DAILY Singulair Tablet (Montelukast Sodium) 10 Mg Tablet 1 Tab PO DAILY Flovent 110MCG Hfa (Fluticasone Propionate) 12 Gm Aer.w.adap 2 Puff IH BID Ventolin Hfa Inhaler (Albuterol Sulfate) 18 Gm Hfa.aer.ad 2 Puff INH BID Vitals/I & O Vital Sign - Last 24 Hours 06/18/18 06/18/18 06/18/18 06/18/18 11:00 15:00 19:05 20:00 Temp 97.9 98.2 97.9 97.9 98.2 97.9 Pulse 96 85 84 Resp 18 16 16 B/P (MAP) 102/62 (75) 116/67 (83) 123/50 (74) Pulse Ox 93 96 93 O2 Delivery Room Air Room Air Room Air Room Air 06/18/18 06/18/18 06/19/18 06/19/18 20:50 23:33 03:20 07:00 Temp 97.5 98.0 97.8 97.5 98.0 97.8 Pulse 98 96 70 Resp 16 16 18 B/P (MAP) 108/52 (70) 117/69 (85) 125/67 (86) Pulse Ox 97 91 93 95 O2 Delivery Room Air Room Air Room Air Room Air 06/19/18 08:01 Pulse Ox 96 O2 Delivery Room Air Intake and Output 06/18/18 06/18/18 06/19/18 15:01 23:01 07:01 Intake Total 480 ml 440 ml Balance 480 ml 440 ml ARLETH SUAREZ K III DO Jun 19, 2018 09:41
[2018-06-19 11:00] VITALS: BP 108/65
--- NOTE | 2018-06-19 12:05 | DISCH ---
DISCHARGE WITH HOME HEALTH DISCHARGE INFORMATION: Condition on Discharge: Stable CODE STATUS: Code Status: Full HOME HEALTH: Face to Face: I certify this patient is under my care and that I, or a nurse practitioner or physician's clinical medical assistant working with me, had a face to face encounter that meets the physician face to face encounter requirements with this patient on []. Medical Complications: Pneumonia Physical Therapy For: Evalulation/Treatment Occupational Therapy For: Evaluation/Treatment Home Health Aide For: Self-care SUGAR MIXER For: Community Resources POST DISCHARGE ORDERS: Activity Instructions for Disc: Activity as tolerated DIET AFTER DISCHARGE: Cardiac CERTIFICATION STATEMENT: Certification Statement: Certification Statement: Based on the above finding, I certify that this patient is confined to the home and needs intermittent retirement care, physical therapy and/or speech therapy, or continues to need occupational therapy.~ This patient is under my care, and I have initiated the establishment of the plan of care.~ This patient will be followed by myself or a community physician who will periodically review the plan of care. Home Meds Reported Medications Omeprazole (OMEPRAZOLE) 10 Mg Capsule.dr, 10 MG PO DAILY for reflux, CAP 06/07/18 Aspirin (ASPIRIN) 81 Mg Tab.chew, 81 MG PO DAILY05 for heart, TAB.CHEW 06/07/18 Multivitamin (MULTIVITAMINS) 1 Each Tablet, 1 TAB PO DAILY for vitamin, #90 TAB 3 Refills 06/07/18 Calcium Carbonate (TUMS) 200 Mg Tab.chew, 200 MG PO Q4-6HRS PRN for reflux, TAB.CHEW 06/07/18 Letrozole (FEMARA) 2.5 Mg Tablet, 1 TAB PO DAILY for estrogen pill, #30 TAB 11 Refills 06/07/18 Montelukast Sodium (SINGULAIR TABLET) 10 Mg Tablet, 1 TAB PO DAILY for allergies , #90 TAB 1 Refill 06/07/18 Fluticasone Propionate (FLOVENT 110MCG HFA) 12 Gm Aer.w.adap, 2 PUFF IH BID for copd, #1 INHALER 2 Refills 06/07/18 Albuterol Sulfate (VENTOLIN HFA INHALER) 18 Gm Hfa.aer.ad, 2 PUFF INH BID for FOR ASTHMA, INHALER 0 Refills 06/07/18 ARLETH SUAREZ III, DO Jun 19, 2018 12:05
[2018-06-19] MEDS ORDERED: LIDOCAINE 1%/EPI 1:100,000 20 ML VIAL. ONE (12:58)
[2018-06-19 13:14] LABS: PROTHROMBIN TIME PATIENT 12.6 SEC (11.7-14.0)
--- NOTE | 2018-06-19 13:43 | NUR ---
SW following pt. SW confirmed with [facility] they are able to take pt with her IJ as pt is not able to get PICC or Midline. Attempted to meet with pt in room but pt was being taken to get her IJ placed. SW spoke with infusion nurse at outpatient and they said pt is able to come to outpatient but it has to be at 0700 and 1600. MURPHY also spoke with Jennifer at [facility] to see if they are able to accommodate. Jennifer to check with DON if they are able to take the IJ. Physician notified. MAYRA RN.
[2018-06-19] MEDS ORDERED: HEPARIN PF 500 UNIT/5 ML DISP.SYRIN. IV ONE ×2 (13:50→14:00)
[2018-06-19] MEDS ORDERED: LIDOCAINE 1%/EPI 1:100,000 20 ML VIAL. INJ ONE (14:30)
[2018-06-19 14:55] VITALS: BP 132/70
--- NOTE | 2018-06-19 16:05 | NUR ---
SW following. Spoke with infusion nurse at outpatient and Aissatou Montgomery at ER and they are not able to do 1900 dosage. Discussed with pt and in room. SW informed pt and , a nurse from [facility] will come to do the teaching at bedside tomorrow at 1130. SW extensively discussed that IV abx can be done at home and home health can provide support at least 4x a week. Pt agreeable for bedside teach and meeting with [facility] liaison, Abdi tomorrow morning. MURPHY also discussed about going to SNF but pt is more interested if she is able to do it at another outpatient clinic. SW encouraged pt about home infusion and she might consider it if she sees how easily it can be done at home. Discussed with Dr. Reyes and RN.
--- NOTE | 2018-06-19 16:38 | RAD ---
Procedure: Ultrasound and fluoroscopic guided placement of a tunneled central venous catheter Clinical Indication: 78-year-old with breast cancer Sedation: Local anesthesia only Antibiotics: Antibiotic was administered intravenously within 1 hour of the procedure start time. Exposure: Kerma-Area Product: 1 Gycm2 Sterility: All elements of maximal sterile barrier technique including the use of a cap, mask, sterile gown, sterile gloves, large sterile sheet, appropriate hand hygiene, and 2% chlorhexidine for cutaneous antisepsis (or acceptable alternative antiseptic per current guidelines) were followed for this procedure. If ultrasound guidance was utilized, sterile ultrasound techniques were followed including use of a sterile probe cover. Consent: The procedure was explained in its entirety to the patient or the patients designated artist's representative by a member of the treatment team, including a discussion of the risks, benefits and commonly accepted alternatives to the procedure, as well as the expected consequences of no therapy whatsoever. Discussion of the risks included, but was not limited to, those that are most frequent and those that are rare but possibly severe or life-threatening, as well as the possibility of unforeseen complications. Technique and Findings: Following informed consent, the patient was prepped and draped in usual sterile fashion. Ultrasound interrogation of the right neck revealed patency of the right internal jugular vein. A hardcopy ultrasound image was recorded as a 21-gauge micropuncture was used to gain access to this vein. The needle was exchanged over wire for a small peel-away sheath. The right anterior chest wall was then copiously anesthetized with 1% lidocaine and a small dermatotomy was made. A double lumen tunneled central venous catheter was then tunneled subcutaneously towards the neck dermatotomy then deployed through the peel-away sheath under fluoroscopic guidance such that the distal tip resided at the proximal right atrium. Both lumens were assessed and found to function well. The catheter was then flushed, capped, and sutured to the skin. Dermabond was used to close the neck dermatotomy. Complications: No immediate Impression: 1. Fluoroscopic and ultrasound-guided placement of a tunneled central venous catheter as described
[2018-06-19 19:41] VITALS: BP 113/55
[2018-06-19] MEDS: LETROZOLE 2.5MG TAB PO SCH (20:56)
[2018-06-19] MEDS: PANTOPRAZOLE 40 MG TABLET.DR. PO SCH (20:56)
[2018-06-19] MEDS: MONTELUKAST SODIUM 10 MG TABLET. PO SCH (21:16)
[2018-06-19 23:14] VITALS: BP 119/63
[2018-06-20 03:53] VITALS: BP 126/67
[2018-06-20] MEDS: ASPIRIN CHEWABLE 81 MG TABLET. PO SCH (05:31)
[2018-06-20] MEDS: HEPARIN for SUB-Q USE 5,000 UNIT/ML VIAL. SQ SCH (05:34)
[2018-06-20 07:00] VITALS: BP 130/68
[2018-06-20 07:39] LABS: BASO % 1 % (0-3); EOS # 0.1 x10^3/uL (0.0-0.7); EOS % 3 % (0-3); HEMATOCRIT 35.2 % (36.0-47.0); HEMOGLOBIN 11.7 g/dL (12.0-15.5); LYMPH # 0.6 x10^3/uL (1.0-4.8); LYMPH % 14 % (24-48); MEAN CORPUSCULAR HEMOGLOBIN 31 pg (25-35); MEAN CORPUSCULAR HGB CONC 33 g/dL (31-37); MEAN CORPUSCULAR VOLUME 92 fL (79-100); MONO # 0.5 x10^3/uL (0.0-1.1); MONO % 12 % (0-9); NEUT # 3.3 x10^3uL (1.8-7.7); NEUT % 71 % (31-73); PLATELET COUNT 244 x10^3/uL (140-400); RED BLOOD COUNT 3.83 x10^6/uL (3.50-5.40); WHITE BLOOD COUNT 4.6 x10^3/uL (4.0-11.0)
[2018-06-20 07:39] LABS: CALCIUM 9.2 mg/dL (8.5-10.1); CREATININE 0.8 mg/dL (0.6-1.0); GFR 69.2; POTASSIUM 4.4 mmol/L (3.5-5.1)
[2018-06-20] MEDS: MEROPENEM 1 GM in IV NORMAL SALINE 100ML 100 ML IV SCH (08:32)
[2018-06-20] MEDS: LACTOBACILLUS RHAMNOSUS GG 1 CAPSULE. PO SCH (08:32)
[2018-06-20] MEDS: NYSTATIN 100,000 UNITS/ML 5 ML ORAL.SUSP. SWSW SCH ×2 (08:33→12:41)
[2018-06-20] MEDS: SENNOSIDES/DOCUSATE 8.6/50MG TABLET. PO SCH (08:33)
[2018-06-20] MEDS: MULTIVITAMIN with MINERAL TABLET. PO SCH (08:33)
[2018-06-20] MEDS: BUDESONIDE 0.5 MG/2 ML NEBU. NEB SCH (08:50)
[2018-06-20] MEDS: IPRATRPIUM/ALBUTEROL 0.5/2.5MG 3 ML NEBU. NEB SCH ×2 (08:50→11:54)
--- NOTE | 2018-06-20 09:30 | PDOC ---
PULMONARY PROGRESS NOTES Subjective NOT MORE SOA Vitals Vital Signs Date Time Temp Pulse Resp B/P (MAP) Pulse Ox O2 Delivery O2 Flow Rate FiO2 06/20/18 08:51 96 Room Air 06/20/18 07:00 98.2 71 16 130/68 (88) 98.2 ROS: No Nausea, No Chest Pain, No Abdominal Pain, No Increase Cough General: Alert Lungs: Other (r deminished bs) Cardiovascular: S1, S2 Abdomen: Soft, Non-tender Neuro Exam: Alert, Oriented Extremities: No Edema Labs Laboratory Tests Test 06/19/18 03:00 06/19/18 11:55 06/20/18 06:45 06/20/18 06:46 White Blood Count 4.9 x10^3/uL (4.0-11.0) 4.6 x10^3/uL (4.0-11.0) Red Blood Count 3.77 x10^6/uL (3.50-5.40) 3.83 x10^6/uL (3.50-5.40) Hemoglobin 11.7 g/dL (12.0-15.5) 11.7 g/dL (12.0-15.5) Hematocrit 34.7 % (36.0-47.0) 35.2 % (36.0-47.0) Mean Corpuscular Volume 92 fL (79-100) 92 fL (79-100) Mean Corpuscular Hemoglobin 31 pg (25-35) 31 pg (25-35) Mean Corpuscular Hemoglobin Concent 34 g/dL (31-37) 33 g/dL (31-37) Red Cell Distribution Width 13.1 % (11.5-14.5) 13.0 % (11.5-14.5) Platelet Count 251 x10^3/uL (140-400) 244 x10^3/uL (140-400) Neutrophils (%) (Auto) 68 % (31-73) 71 % (31-73) Lymphocytes (%) (Auto) 16 % (24-48) 14 % (24-48) Monocytes (%) (Auto) 12 % (0-9) 12 % (0-9) Eosinophils (%) (Auto) 3 % (0-3) 3 % (0-3) Basophils (%) (Auto) 1 % (0-3) 1 % (0-3) Neutrophils # (Auto) 3.4 x10^3uL (1.8-7.7) 3.3 x10^3uL (1.8-7.7) Lymphocytes # (Auto) 0.8 x10^3/uL (1.0-4.8) 0.6 x10^3/uL (1.0-4.8) Monocytes # (Auto) 0.6 x10^3/uL (0.0-1.1) 0.5 x10^3/uL (0.0-1.1) Eosinophils # (Auto) 0.2 x10^3/uL (0.0-0.7) 0.1 x10^3/uL (0.0-0.7) Basophils # (Auto) 0.0 x10^3/uL (0.0-0.2) 0.0 x10^3/uL (0.0-0.2) Sodium Level 136 mmol/L (136-145) 136 mmol/L (136-145) Potassium Level 4.2 mmol/L (3.5-5.1) 4.4 mmol/L (3.5-5.1) Chloride Level 99 mmol/L (98-107) 100 mmol/L (98-107) Carbon Dioxide Level 32 mmol/L (21-32) 31 mmol/L (21-32) Anion Gap 5 (6-14) 5 (6-14) Blood Urea Nitrogen 13 mg/dL (7-20) 12 mg/dL (7-20) Creatinine 0.9 mg/dL (0.6-1.0) 0.8 mg/dL (0.6-1.0) Estimated GFR (Cockcroft-Gault) 60.4 69.2 Glucose Level 92 mg/dL (70-99) 90 mg/dL (70-99) Calcium Level 9.1 mg/dL (8.5-10.1) 9.2 mg/dL (8.5-10.1) Prothrombin Time 12.6 SEC (11.7-14.0) Prothromb Time International Ratio 1.0 (0.8-1.1) Activated Partial Thromboplast Time 43 SEC (24-38) Laboratory Tests Test 06/19/18 11:55 06/20/18 06:45 06/20/18 06:46 Prothrombin Time 12.6 SEC (11.7-14.0) Prothromb Time International Ratio 1.0 (0.8-1.1) Activated Partial Thromboplast Time 43 SEC (24-38) Sodium Level 136 mmol/L (136-145) Potassium Level 4.4 mmol/L (3.5-5.1) Chloride Level 100 mmol/L (98-107) Carbon Dioxide Level 31 mmol/L (21-32) Anion Gap 5 (6-14) Blood Urea Nitrogen 12 mg/dL (7-20) Creatinine 0.8 mg/dL (0.6-1.0) Estimated GFR (Cockcroft-Gault) 69.2 Glucose Level 90 mg/dL (70-99) Calcium Level 9.2 mg/dL (8.5-10.1) White Blood Count 4.6 x10^3/uL (4.0-11.0) Red Blood Count 3.83 x10^6/uL (3.50-5.40) Hemoglobin 11.7 g/dL (12.0-15.5) Hematocrit 35.2 % (36.0-47.0) Mean Corpuscular Volume 92 fL (79-100) Mean Corpuscular Hemoglobin 31 pg (25-35) Mean Corpuscular Hemoglobin Concent 33 g/dL (31-37) Red Cell Distribution Width 13.0 % (11.5-14.5) Platelet Count 244 x10^3/uL (140-400) Neutrophils (%) (Auto) 71 % (31-73) Lymphocytes (%) (Auto) 14 % (24-48) Monocytes (%) (Auto) 12 % (0-9) Eosinophils (%) (Auto) 3 % (0-3) Basophils (%) (Auto) 1 % (0-3) Neutrophils # (Auto) 3.3 x10^3uL (1.8-7.7) Lymphocytes # (Auto) 0.6 x10^3/uL (1.0-4.8) Monocytes # (Auto) 0.5 x10^3/uL (0.0-1.1) Eosinophils # (Auto) 0.1 x10^3/uL (0.0-0.7) Basophils # (Auto) 0.0 x10^3/uL (0.0-0.2) Medications Active Scripts Medications Dose Route/Sig Max Daily Dose Days Date Category Omeprazole 10 Mg Capsule.dr 10 Mg PO DAILY 06/07/18 Reported Aspirin 81 Mg Tab.chew 81 Mg PO DAILY05 06/07/18 Reported Multivitamins (Multivitamin) 1 Each Tablet 1 Tab PO DAILY 06/07/18 Reported Tums (Calcium Carbonate) 200 Mg Tab.chew 200 Mg PO Q4-6HRS PRN 06/07/18 Reported Femara (Letrozole) 2.5 Mg Tablet 1 Tab PO DAILY 06/07/18 Reported Singulair Tablet (Montelukast Sodium) 10 Mg Tablet 1 Tab PO DAILY 06/07/18 Reported Flovent 110MCG Hfa (Fluticasone Propionate) 12 Gm Aer.w.adap 2 Puff IH BID 06/07/18 Reported Ventolin Hfa Inhaler (Albuterol Sulfate) 18 Gm Hfa.aer.ad 2 Puff INH BID 06/07/[address] 1. Status post right pneumonectomy. 2. Mild lingular nodularity seen on 03/22/2018 has largely resolved and was probably inflammatory in nature. 3. Mild scattered parenchymal scarring on the left 4. Cholelithiasis. Impression . IMPRESSION: 1. Persistent cough with abnormal CT chest with a tiny nodular infiltrate in the left upper lobe. Status post bronchoscopy growing multidrug resistant Pseudomonas in bronchoalveolar lavage. 2. History of a right pneumonectomy for lung cancer in 2002. 3. Possible mild chronic obstructive pulmonary disease. 4. MDR BRONCHITIS POSSIBLE PNEUMONIA Plan . ANTI BX PER ID D/W DR OCONNOR FOLLOW UP IN MY OFFICE IN 406 WEEKS PHUC SALAZAR MD Jun 20, 2018 09:30
--- NOTE | 2018-06-20 10:25 | PDOC ---
Infectious Disease Note Subjective Subjective Less swelling today and improved throat. Cough better. Not taking Nystatin ? getting a "cold" as her had one but feeling better Denies F/C/S/N/V/D/SOA/CP Vital Sign Vital Signs Vital Signs Date Time Temp Pulse Resp B/P (MAP) Pulse Ox O2 Delivery O2 Flow Rate FiO2 06/20/18 08:51 96 Room Air 06/20/18 07:00 98.2 71 16 130/68 (88) 98.2 Physical Exam PHYSICAL EXAM GENERAL: Sitting on side of the bed, alert, smiling - looks ok HEENT: Pupils equally round, normal conjunctivae. Oral cavity, pharynx pink and dry. NECK: Supple. LUNGS: Clear lung mcknight on the left. Nonlabored. on 02 HEART: S1, S2. ABDOMEN: Nondistended, soft and nontender with bowel sounds present. EXTREMITIES: Trace to 1 plus edema or cyanosis. SKIN: Warm without rash. NEUROLOGIC: Alert and oriented x 3. RIght chest IV - clean Labs Lab Laboratory Tests Test 06/19/18 11:55 06/20/18 06:45 06/20/18 06:46 Prothrombin Time 12.6 SEC (11.7-14.0) Prothromb Time International Ratio 1.0 (0.8-1.1) Activated Partial Thromboplast Time 43 SEC (24-38) Sodium Level 136 mmol/L (136-145) Potassium Level 4.4 mmol/L (3.5-5.1) Chloride Level 100 mmol/L (98-107) Carbon Dioxide Level 31 mmol/L (21-32) Anion Gap 5 (6-14) Blood Urea Nitrogen 12 mg/dL (7-20) Creatinine 0.8 mg/dL (0.6-1.0) Estimated GFR (Cockcroft-Gault) 69.2 Glucose Level 90 mg/dL (70-99) Calcium Level 9.2 mg/dL (8.5-10.1) White Blood Count 4.6 x10^3/uL (4.0-11.0) Red Blood Count 3.83 x10^6/uL (3.50-5.40) Hemoglobin 11.7 g/dL (12.0-15.5) Hematocrit 35.2 % (36.0-47.0) Mean Corpuscular Volume 92 fL (79-100) Mean Corpuscular Hemoglobin 31 pg (25-35) Mean Corpuscular Hemoglobin Concent 33 g/dL (31-37) Red Cell Distribution Width 13.0 % (11.5-14.5) Platelet Count 244 x10^3/uL (140-400) Neutrophils (%) (Auto) 71 % (31-73) Lymphocytes (%) (Auto) 14 % (24-48) Monocytes (%) (Auto) 12 % (0-9) Eosinophils (%) (Auto) 3 % (0-3) Basophils (%) (Auto) 1 % (0-3) Neutrophils # (Auto) 3.3 x10^3uL (1.8-7.7) Lymphocytes # (Auto) 0.6 x10^3/uL (1.0-4.8) Monocytes # (Auto) 0.5 x10^3/uL (0.0-1.1) Eosinophils # (Auto) 0.1 x10^3/uL (0.0-0.7) Basophils # (Auto) 0.0 x10^3/uL (0.0-0.2) Objective Assessment MDR Pseudomonas respiratory infection s/p BAL on 06/07/2018. History of a right pneumonectomy for lung cancer in 2002. Abx allergies - PCN - swollen lip (unsure if ever had cephalosporin or amox) and Levaquin allergy tendon complications GERD Plan Plan of Care Continue the meropenem but 1 gm q 12 7 days - Rx written Line care per IR D/c Nystatin - she does not want it Probiotics D/w Social Service F/u ID office next week Labs on Monday Rx written Questions answered and risks reviewed of line and abx D/w nursing TIFFANIE OCONNOR MD Jun 20, 2018 10:25
--- NOTE | 2018-06-20 10:59 | NUR ---
SW following pt. Pt and currently doing a bedside teach with Guero from [facility]. MURPHY phoned and faxed IV abx orders to [facility] and [facility]. Dee from [facility] to meet with pt after 1230. SW will continue to follow.
--- NOTE | 2018-06-20 12:40 | PDOC ---
PROGRESS NOTES Chief Complaint Chief Complaint Positive Bronchoscopy culture (pseudomonas) History of Present Illness History of Present Illness Patient seen and examined this morning. Discharge today with central catheter for home infusion. Vitals Vitals Vital Signs Date Time Temp Pulse Resp B/P (MAP) Pulse Ox O2 Delivery O2 Flow Rate FiO2 06/20/18 08:51 96 Room Air 06/20/18 07:00 98.2 71 16 130/68 (88) 98.2 Physical Exam Physical Exam GENERAL: Sitting on side of the bed, alert, smiling - looks ok HEENT: Pupils equally round, normal conjunctivae. Oral cavity, pharynx pink and dry. NECK: Supple. LUNGS: Clear lung mcknight on the left. Nonlabored. on 02 HEART: S1, S2. ABDOMEN: Nondistended, soft and nontender with bowel sounds present. EXTREMITIES: Trace to 1 plus edema or cyanosis. SKIN: Warm without rash. NEUROLOGIC: Alert and oriented x 3. RIght chest IV - clean General: Alert, Oriented X3, Cooperative, No acute distress Heart: Regular rate, Normal S1, Normal S2 Lungs: Other (r deminished bs) Abdomen: Normal bowel sounds, Soft, No tenderness, No hepatosplenomegaly, No masses Extremities: No clubbing, No cyanosis, No edema, Normal pulses, No tenderness/ swelling Skin: No rashes, No breakdown, No significant lesion Labs LABS Laboratory Tests Test 06/20/18 06:45 06/20/18 06:46 Sodium Level 136 mmol/L (136-145) Potassium Level 4.4 mmol/L (3.5-5.1) Chloride Level 100 mmol/L (98-107) Carbon Dioxide Level 31 mmol/L (21-32) Anion Gap 5 (6-14) Blood Urea Nitrogen 12 mg/dL (7-20) Creatinine 0.8 mg/dL (0.6-1.0) Estimated GFR (Cockcroft-Gault) 69.2 Glucose Level 90 mg/dL (70-99) Calcium Level 9.2 mg/dL (8.5-10.1) White Blood Count 4.6 x10^3/uL (4.0-11.0) Red Blood Count 3.83 x10^6/uL (3.50-5.40) Hemoglobin 11.7 g/dL (12.0-15.5) Hematocrit 35.2 % (36.0-47.0) Mean Corpuscular Volume 92 fL (79-100) Mean Corpuscular Hemoglobin 31 pg (25-35) Mean Corpuscular Hemoglobin Concent 33 g/dL (31-37) Red Cell Distribution Width 13.0 % (11.5-14.5) Platelet Count 244 x10^3/uL (140-400) Neutrophils (%) (Auto) 71 % (31-73) Lymphocytes (%) (Auto) 14 % (24-48) Monocytes (%) (Auto) 12 % (0-9) Eosinophils (%) (Auto) 3 % (0-3) Basophils (%) (Auto) 1 % (0-3) Neutrophils # (Auto) 3.3 x10^3uL (1.8-7.7) Lymphocytes # (Auto) 0.6 x10^3/uL (1.0-4.8) Monocytes # (Auto) 0.5 x10^3/uL (0.0-1.1) Eosinophils # (Auto) 0.1 x10^3/uL (0.0-0.7) Basophils # (Auto) 0.0 x10^3/uL (0.0-0.2) Review of Systems Review of Systems lung: denies soa heart: denies cp Assessment and Plan Assessmemt and Plan Assessment: 1. Positive culture on Bronchoscopy for pseudomonas 2. Left lung removed 3. history of breast cancer Plan: 1. meropenum infusions at home per ID 2. PT/OT 3. home meds 4. appreciate subspecialty input 5. discharge home today Comment Review of Relevant I have reviewed the following items galen (where applicable) has been applied. Labs Laboratory Tests Test 06/19/18 03:00 06/19/18 11:55 06/20/18 06:45 06/20/18 06:46 White Blood Count 4.9 x10^3/uL (4.0-11.0) 4.6 x10^3/uL (4.0-11.0) Red Blood Count 3.77 x10^6/uL (3.50-5.40) 3.83 x10^6/uL (3.50-5.40) Hemoglobin 11.7 g/dL (12.0-15.5) 11.7 g/dL (12.0-15.5) Hematocrit 34.7 % (36.0-47.0) 35.2 % (36.0-47.0) Mean Corpuscular Volume 92 fL (79-100) 92 fL (79-100) Mean Corpuscular Hemoglobin 31 pg (25-35) 31 pg (25-35) Mean Corpuscular Hemoglobin Concent 34 g/dL (31-37) 33 g/dL (31-37) Red Cell Distribution Width 13.1 % (11.5-14.5) 13.0 % (11.5-14.5) Platelet Count 251 x10^3/uL (140-400) 244 x10^3/uL (140-400) Neutrophils (%) (Auto) 68 % (31-73) 71 % (31-73) Lymphocytes (%) (Auto) 16 % (24-48) 14 % (24-48) Monocytes (%) (Auto) 12 % (0-9) 12 % (0-9) Eosinophils (%) (Auto) 3 % (0-3) 3 % (0-3) Basophils (%) (Auto) 1 % (0-3) 1 % (0-3) Neutrophils # (Auto) 3.4 x10^3uL (1.8-7.7) 3.3 x10^3uL (1.8-7.7) Lymphocytes # (Auto) 0.8 x10^3/uL (1.0-4.8) 0.6 x10^3/uL (1.0-4.8) Monocytes # (Auto) 0.6 x10^3/uL (0.0-1.1) 0.5 x10^3/uL (0.0-1.1) Eosinophils # (Auto) 0.2 x10^3/uL (0.0-0.7) 0.1 x10^3/uL (0.0-0.7) Basophils # (Auto) 0.0 x10^3/uL (0.0-0.2) 0.0 x10^3/uL (0.0-0.2) Sodium Level 136 mmol/L (136-145) 136 mmol/L (136-145) Potassium Level 4.2 mmol/L (3.5-5.1) 4.4 mmol/L (3.5-5.1) Chloride Level 99 mmol/L (98-107) 100 mmol/L (98-107) Carbon Dioxide Level 32 mmol/L (21-32) 31 mmol/L (21-32) Anion Gap 5 (6-14) 5 (6-14) Blood Urea Nitrogen 13 mg/dL (7-20) 12 mg/dL (7-20) Creatinine 0.9 mg/dL (0.6-1.0) 0.8 mg/dL (0.6-1.0) Estimated GFR (Cockcroft-Gault) 60.4 69.2 Glucose Level 92 mg/dL (70-99) 90 mg/dL (70-99) Calcium Level 9.1 mg/dL (8.5-10.1) 9.2 mg/dL (8.5-10.1) Prothrombin Time 12.6 SEC (11.7-14.0) Prothromb Time International Ratio 1.0 (0.8-1.1) Activated Partial Thromboplast Time 43 SEC (24-38) Laboratory Tests Test 06/20/18 06:45 06/20/18 06:46 Sodium Level 136 mmol/L (136-145) Potassium Level 4.4 mmol/L (3.5-5.1) Chloride Level 100 mmol/L (98-107) Carbon Dioxide Level 31 mmol/L (21-32) Anion Gap 5 (6-14) Blood Urea Nitrogen 12 mg/dL (7-20) Creatinine 0.8 mg/dL (0.6-1.0) Estimated GFR (Cockcroft-Gault) 69.2 Glucose Level 90 mg/dL (70-99) Calcium Level 9.2 mg/dL (8.5-10.1) White Blood Count 4.6 x10^3/uL (4.0-11.0) Red Blood Count 3.83 x10^6/uL (3.50-5.40) Hemoglobin 11.7 g/dL (12.0-15.5) Hematocrit 35.2 % (36.0-47.0) Mean Corpuscular Volume 92 fL (79-100) Mean Corpuscular Hemoglobin 31 pg (25-35) Mean Corpuscular Hemoglobin Concent 33 g/dL (31-37) Red Cell Distribution Width 13.0 % (11.5-14.5) Platelet Count 244 x10^3/uL (140-400) Neutrophils (%) (Auto) 71 % (31-73) Lymphocytes (%) (Auto) 14 % (24-48) Monocytes (%) (Auto) 12 % (0-9) Eosinophils (%) (Auto) 3 % (0-3) Basophils (%) (Auto) 1 % (0-3) Neutrophils # (Auto) 3.3 x10^3uL (1.8-7.7) Lymphocytes # (Auto) 0.6 x10^3/uL (1.0-4.8) Monocytes # (Auto) 0.5 x10^3/uL (0.0-1.1) Eosinophils # (Auto) 0.1 x10^3/uL (0.0-0.7) Basophils # (Auto) 0.0 x10^3/uL (0.0-0.2) Medications Current Medications Ondansetron HCl (Zofran) 4 mg PRN Q6HRS PRN IV NAUSEA/VOMITING Last administered on 06/16/18at 06:36; Start 06/15/18 at 14:15 Acetaminophen/ Hydrocodone Bitart (Lortab 5/325) 1 tab PRN Q4HRS PRN PO MILD PAIN; Start 06/15/18 at 14:15 Acetaminophen (Tylenol) 650 mg PRN Q6HRS PRN PO Headaches, Temp > 101.5F; Start 06/15/18 at 14:15 Senna/Docusate Sodium (Senna Plus) 1 tab BID PO Last administered on 06/19/18at 08:47; Start 06/15/18 at 21:00 Magnesium Hydroxide (Milk Of Magnesia) 2,400 mg PRN Q12HR PRN PO CONSTIPATION; Start 06/15/18 at 14:15 Heparin Sodium (Porcine) (Heparin Sodium) 5,000 unit Q8HRS SQ Last administered on 06/20/18at 05:34; Start 06/15/18 at 15:00 Aspirin (Children'S Aspirin) 81 mg DAILY05 PO Last administered on 06/20/18at 05 :31; Start 06/16/18 at 05:00 Calcium Carbonate/ Glycine (Tums) 500 mg PRN Q2HR PRN PO reflux; Start at 14:15 Non-Formulary Medication 1 ea DAILY PO ; Start 06/16/18 at 09:00; Stop 06/16/18 at 09:00; Status DC Non-Formulary Medication (Albuterol Sulfate (Ventolin Hfa Inhaler)) 2 puff BID INH ; Start 06/15/18 at 21:00; Status UNV Non-Formulary Medication (Fluticasone Propionate (Flovent 110MCG Hfa)) 2 puff BID IH ; Start 06/15/18 at 21:00; Status UNV Montelukast Sodium (Singulair) 10 mg QHS PO Last administered on 06/19/18at 21: 16; Start 06/15/18 at 21:00 Multivitamins (Thera M Plus) 1 tab DAILY PO Last administered on 06/20/18at 08: 33; Start 06/16/18 at 09:00 Pantoprazole Sodium (Protonix) 40 mg HS PO Last administered on 06/19/18at 20:56 ; Start 06/15/18 at 23:00 Meropenem 500 mg/ Sodium Chloride 50 ml @ 100 mls/hr Q8HRS IV Last administered on 06/19/18at 05:50; Start 06/15/18 at 15:00; Stop 06/19/18 at 08:00 ; Status DC Budesonide (Pulmicort) 0.5 mg RTBID NEB Last administered on 06/20/18at 08:50; Start 06/15/18 at 20:00 Albuterol Sulfate (Ventolin Neb Soln) 2.5 mg RTBID NEB Last administered on at 09:34; Start 06/15/18 at 20:00; Stop 06/16/18 at 09:40; Status DC Non-Formulary Medication 1 ea DAILY PO ; Start 06/15/18 at 23:00; Stop 06/15/18 at 23:00; Status DC Non-Formulary Medication 1 ea HS PO Last administered on 06/19/18at 20:56; Start 06/16/18 at 21:00 Albuterol/ Ipratropium (Duoneb) 3 ml RTQID NEB Last administered on 06/20/18at 08:50; Start 06/16/18 at 12:00 Lactobacillus Rhamnosus (Culturelle) 1 cap BID PO Last administered on at 08:32; Start 06/16/18 at 21:00 Throat Lozenges (Cepacol Sore Throat Lozenge) 1 simran PRN Q2HRS PRN PO SORE THROAT Last administered on 06/17/18at 18:16; Start 06/17/18 at 17:45 Meropenem 1 gm/ Sodium Chloride 100 ml @ 200 mls/hr Q12HR IV Last administered on 06/20/18at 08:32; Start 06/19/18 at 09:00 Nystatin (Nystatin Oral Susp) 5 ml [id number] [id number] ; Start 06/19/18 at 09:00 Lidocaine/ Epinephrine (LIDOCAINE 1%-EPI 1:100,000 Multi-Dose) 20 ml STK-MED ONCE .ROUTE ; Start 06/19/18 at 12:58; Stop 06/19/18 at 13:00; Status DC Heparin Sodium (Porcine) (Hep Lock Adult) 500 unit STK-MED ONCE IV ; Start 06/19 at 13:50; Stop 06/19/18 at 13:52; Status DC Lidocaine/ Epinephrine (LIDOCAINE 1%-EPI 1:100,000 Multi-Dose) 20 ml 1X ONCE INJ Last administered on 06/19/18at 14:15; Start 06/19/18 at 14:30; Stop at 14:31; Status DC Heparin Sodium (Porcine) (Hep Lock Adult) 500 unit 1X ONCE IV Last administered on 06/19/18at 14:15; Start 06/19/18 at 14:00; Stop 06/19/18 at 14:04 ; Status DC Active Scripts Active Reported Omeprazole 10 Mg Capsule.dr 10 Mg PO DAILY Aspirin 81 Mg Tab.chew 81 Mg PO DAILY05 Multivitamins (Multivitamin) 1 Each Tablet 1 Tab PO DAILY Tums (Calcium Carbonate) 200 Mg Tab.chew 200 Mg PO Q4-6HRS PRN Femara (Letrozole) 2.5 Mg Tablet 1 Tab PO DAILY Singulair Tablet (Montelukast Sodium) 10 Mg Tablet 1 Tab PO DAILY Flovent 110MCG Hfa (Fluticasone Propionate) 12 Gm Aer.w.adap 2 Puff IH BID Ventolin Hfa Inhaler (Albuterol Sulfate) 18 Gm Hfa.aer.ad 2 Puff INH BID Vitals/I & O Vital Sign - Last 24 Hours 06/19/18 06/19/18 06/19/18 06/19/18 14:55 19:41 20:00 20:02 Temp 98.2 98.1 98.2 98.1 Pulse 103 82 Resp 18 18 B/P (MAP) 132/70 (90) 113/55 (74) Pulse Ox 96 96 96 O2 Delivery Room Air Room Air Room Air Room Air 06/19/18 06/20/18 06/20/18 06/20/18 23:14 03:53 07:00 08:00 Temp 97.8 98.0 98.2 97.8 98.0 98.2 Pulse 83 79 71 Resp 18 18 16 B/P (MAP) 119/63 (81) 126/67 (86) 130/68 (88) Pulse Ox 95 95 98 O2 Delivery Room Air Room Air Room Air Room Air 06/20/18 08:51 Pulse Ox 96 O2 Delivery Room Air Intake and Output 06/19/18 06/19/18 06/20/18 15:01 23:01 07:01 Intake Total 480 ml 350 ml 370 ml Balance 480 ml 350 ml 370 ml ARLETH SUAREZ III DO Jun 20, 2018 12:40
--- NOTE | 2018-06-20 14:10 | NUR ---
Pt discharged to home with . Pt and spouse met with [facility] and all questions were answered. Discharge teaching completed. Home meds returned to pt. Both pt and spouse verbalized understanding.
== END 2018-06-20 14:10 | disposition home health service (06) | DRG 177 ==
LOC: 6 SOUTH 14:07
PROVIDERS: ADMIT Internal Medicine; ATTEND Internal Medicine
PROC: 0JH63XZ Insertion of Tunneled Vascular Access Device into Chest Subcutaneous Tissue and Fascia, Percutaneous Approach (ICD-10-PCS; principal; 2018-06-19)
PROC: 02H633Z Insertion of Infusion Device into Right Atrium, Percutaneous Approach (ICD-10-PCS; 2018-06-19)
PROC: B2141ZZ Fluoroscopy of Right Heart using Low Osmolar Contrast (ICD-10-PCS; 2018-06-19)
PROC: B244ZZZ Ultrasonography of Right Heart (ICD-10-PCS; 2018-06-19)
DX: J15.1 Pneumonia due to Pseudomonas (principal); E43 Unspecified severe protein-calorie malnutrition; J44.0 Chronic obstructive pulmonary disease with (acute) lower respiratory infection; K21.9 Gastro-esophageal reflux disease without esophagitis; J30.9 Allergic rhinitis, unspecified; J32.9 Chronic sinusitis, unspecified; Z16.23 Resistance to quinolones and fluoroquinolones; Z16.24 Resistance to multiple antibiotics; Z68.23 Body mass index [BMI] 23.0-23.9, adult; Z88.0 Allergy status to penicillin; Z88.8 Allergy status to other drugs, medicaments and biological substances; Z82.5 Family history of asthma and other chronic lower respiratory diseases; Z85.118 Personal history of other malignant neoplasm of bronchus and lung; Z85.3 Personal history of malignant neoplasm of breast; Z87.891 Personal history of nicotine dependence; Z88.1 Allergy status to other antibiotic agents; Z90.13 Acquired absence of bilateral breasts and nipples; Z90.2 Acquired absence of lung [part of]; Z87.01 Personal history of pneumonia (recurrent); Z98.51 Tubal ligation status
CPT/HCPCS: 36415; 36558; 71250; 76937; 77001; 80048; 85025; 85610; 85730; 94640; 94760; C1751; C1892; J1644; J2185; J2405; J3490; J7613; J7620; J7626

== ENCOUNTER → 2018-07-04 | Outpatient (CLI) | payer MEDICARE ==
[~2018-07-04] VITALS: Ht 170.2 cm; Wt 70.3 kg
[2018-07-04] VITALS (7 sets, daily range): BP systolic 133–141; BP diastolic 63–80
[~2018-07-04] MED LIST changes: +ALBUMIN HUMAN 25% 100 ML IV ONE
--- NOTE | 2018-07-04 09:50 | NUR ---
Tunneled power line removed at bedside by Jazz PRADO, OpSite dressing applied. No s\s of bleeding noted. No c\o of pain or discomfort at this time. Will continue to monitor closely.
--- NOTE | 2018-07-04 10:28 | NUR ---
Pt discharged to home accompanied bys spouse. All discharge instructions reviewed with client and spouse. All personal belongings taken, client taken to front entrance per w\c to car. Dressing dry and intact. no s\s of bleeding or infection noted.
--- NOTE | 2018-07-04 12:39 | RAD ---
07/03/2018 removal of tunnelled central venous catheter Discussion: The risks and benefits of the procedure were discussed the patient. Informed consent was obtained. Timeout procedure was performed. The catheter was prepped and draped using sterile barrier technique. The previously placed right internal jugular tunneled central venous catheter was removed traction. Manual pressure was held. No immediate complications were identified. Impression: Removal of a right internal jugular tunneled central venous catheter at the bedside
== END | disposition home or self-care (01) ==
LOC: INTRAD 08:28
PROVIDERS: ATTEND Internal Medicine Nephrology
DX: Z45.2 Encounter for adjustment and management of vascular access device (principal); Z88.0 Allergy status to penicillin; Z88.1 Allergy status to other antibiotic agents; Z88.8 Allergy status to other drugs, medicaments and biological substances
CPT/HCPCS: 36589; P9046

== ENCOUNTER → 2018-07-10 | Outpatient (CLI) | payer MEDICARE ==
[2018-07-04 11:39] VITALS: BP 134/64
[~2018-07-10] MED LIST changes: -ALBUMIN HUMAN 25% 100 ML IV ONE
[2018-07-10 12:35] LABS: BASO # 0.1 x10^3/uL (0.0-0.2); BASO % 1 % (0-3); EOS # 0.1 x10^3/uL (0.0-0.7); EOS % 3 % (0-3); HEMATOCRIT 38.1 % (36.0-47.0); HEMOGLOBIN 12.8 g/dL (12.0-15.5); LYMPH # 0.7 x10^3/uL (1.0-4.8); LYMPH % 14 % (24-48); MEAN CORPUSCULAR HEMOGLOBIN 31 pg (25-35); MEAN CORPUSCULAR HGB CONC 34 g/dL (31-37); MEAN CORPUSCULAR VOLUME 91 fL (79-100); MONO # 0.6 x10^3/uL (0.0-1.1); MONO % 12 % (0-9); NEUT # 3.7 x10^3uL (1.8-7.7); NEUT % 70 % (31-73); PLATELET COUNT 291 x10^3/uL (140-400); RED BLOOD COUNT 4.17 x10^6/uL (3.50-5.40); RED CELL DISTRIBUTION WIDTH 12.7 % (11.5-14.5); WHITE BLOOD COUNT 5.3 x10^3/uL (4.0-11.0)
[2018-07-10 16:13] LABS: IMMUNOGLOBULIN A 266 mg/dL (64-422); IMMUNOGLOBULIN G 1121 mg/dL (700-1600); IMMUNOGLOBULIN M 100 mg/dL (26-217)
== END | disposition home or self-care (01) ==
LOC: LAB 12:09
PROVIDERS: ATTEND Internal Medicine Pulmonary Disease
DX: J47.9 Bronchiectasis, uncomplicated (principal)
CPT/HCPCS: 36415; 82784; 85025